=== PATIENT | female | born 1945 | race Caucasian/White ===

== ENCOUNTER 2017-02-17 13:50 | Inpatient (IN) | payer OTHER, MEDICARE ==
[~2017-02-17] VITALS: Ht 160 cm; Wt 55.3 kg
[~2017-02-17 13:50] MED LIST: ACET160E36 GT; ALBU1.25 NEB; AMIN30LI27 GT; ASCO500S2 GT; CHLO473M3 PO; EPOE1VIA12 SQ; GUAI100S11 GT; HALO5TAB GT; MAG30ORA GT; MUPI22OI7 TP; NA P133E RC; Nutritional Supplement/Fiber GT; Olanzapine GT; Ondansetron Hcl/Pf IVP; PANT40VI GT; QUET25TA GT; RIVA10TA PO; VALPROIC ACID GT; Zolpidem Tartrate PO
--- NOTE | 2017-02-17 13:55 | NUR ---
[facility] FROM [facility] FEVER AND PNEUMONIA. A/OX 1, ON VENT/TRACH. NO DISTRESS. FEVER 102.0, HOT TO TOUCH. IV INTACT ON LEFT HAND, 24 G. BP STABLE. SAFETY AND COMFORT MEASURES IN PLACE. AWAITING MD ORDERS.
--- NOTE | 2017-02-17 14:00 | NUR ---
NEW IV STARTED ON RAC, 20 G. BLOOD DRAWN AND SENT TO LAB.
[2017-02-17 14:28] LABS: BASOPHILS % (AUTO) 0.3 % (0.0-2.0); EOSINOPHILS % (AUTO) 0.1 % (0.0-6.0); HEMATOCRIT 41 % (33-45); HEMOGLOBIN 12.7 g/dL (11.5-14.8); LYMPHOCYTES # (AUTO) 0.8 /CMM (0.8-4.8); LYMPHOCYTES % (AUTO) 7.7 % (20.0-44.0); MEAN CORPUSCULAR HEMOGLOBIN 29 PG (26.0-33.0); MEAN CORPUSCULAR HGB CONC 31 g/dl (31.0-36.0); MEAN CORPUSCULAR VOLUME 93 fL (82-100); MONOCYTES # (AUTO) 0.6 /CMM (0.1-1.30); MONOCYTES % (AUTO) 5.1 % (2.0-12.0); NEUTROPHILS # (AUTO) 9.5 /CMM (1.8-8.9); NEUTROPHILS % (AUTO) 86.8 % (43.0-81.0); PLATELET COUNT (AUTO) 126 /CMM (150-450); RDW COEFFICIENT OF VARIATION 15.8 (11.5-15.0); RED BLOOD CELL COUNT(AUTO) 4.42 MIL/uL (4.0-5.2); WHITE BLOOD COUNT (AUTO) 10.9 K/uL (4.3-11.0)
[2017-02-17 14:33] LABS: CALCIUM, SERUM 8.4 mg/dL (8.5-10.1); CARBON DIOXIDE 27 mmol/L (21-32); CHLORIDE 98 mmol/L (98-107); GLUCOSE 167 mg/dL (74-106); POTASSIUM 4.4 mmol/L (3.5-5.1); SODIUM SERUM 130 mmol/L (136-145); UREA NITROGEN, BLOOD 30 mg/dL (7-18)
[2017-02-17 14:39] LABS: ALANINE AMINOTRANSFERASE 14 U/L (12-78); ALBUMIN 2.2 g/dL (3.4-5.0); ALKALINE PHOSPHATASE 119 U/L (46-116); ASPARTATE AMINOTRANSFERASE 28 U/L (15-37); BILIRUBIN,DIRECT 0.1 mg/dL (0.0-0.2); BILIRUBIN,TOTAL 0.3 mg/dL (0.2-1.0); TOTAL PROTEIN, SERUM 7.3 g/dL (6.4-8.2)
[2017-02-17 14:42] LABS: INR 1.13 (0.87-1.13); PROTHROMBIN TIME 11.8 SECS (9.5-12.7); TROPONIN I < 0.017 ng/mL (0.00-0.056)
--- NOTE | 2017-02-17 14:45 | NUR ---
URINE OBTAINED VIA STRAIGHT CATH AND SENT TO LAB PER MD ORDERS.
[2017-02-17 14:46] VITALS: BP 57/33
--- NOTE | 2017-02-17 14:49 | NUR ---
RT NOTE PT PLACED ON VENT PER MD ORDER. SETTINGS ENDORSED FROM TRANSPORT RT. AC 12 550 50% +5. ALARMS SET PER PROTOCOL AND AUDIBLE. VENT PLUGGED IN TO RED OUTLET. AMBU BAG AT BED SIDE. NO DISTRESS NOTED WILL CONTINUE TO MONITOR. Addendum: 02/17/17 at 1450 by AGUILA MICHAELS RT Amended: Links added.
--- NOTE | 2017-02-17 14:57 | NUR ---
PATIENTS BP DROPPING TO 74/45. OKAY TO GIVE 1L BOLUS NS PER DR. GONZALEZ.
[2017-02-17 14:58] LABS: APPEARANCE,URINE Slightly Cloudy (CLEAR); BILIRUBIN,URINE Negative (NEGATIVE); BLOOD, URINE Large Ery/uL (NEGATIVE); COLOR,URINE Yellow (YELLOW); KETONES,URINE Negative (NEGATIVE); LEUKOCYTE ESTERASE ,URINE Small (NEGATIVE); NITRITE, URINE Negative (NEGATIVE); PH,URINE 5.5 (5.0-8.0); PROTEIN,URINE 100 mg/dl (NEGATIVE); UGLUCOSE Negative (NEGATIVE); UROBILINOGEN,URINE 0.2 EU/dL (0.2)
[2017-02-17 15:00] LABS: BACTERIA,URINE Few /HPF (None Seen); SQUAMOUS EPITHELIAL CELL,UR Few /HPF (None Seen); URINE AMORPHOUS URATE Moderate /HPF (None Seen)
[2017-02-17] MEDS ORDERED: IV NS 0.9% 1,000 ML BAG IV ONE ×2 (15:00→17:00)
[2017-02-17] MEDS ORDERED: PIPERACILLIN /TAZOBACTAM 3.375 G in IV D5W 50 ML IV ONE (15:30)
[2017-02-17] MEDS ORDERED: LEVOFLOXACIN 750 MG /D5W 150ML PIGGYBACK IV ONE (15:30)
--- NOTE | 2017-02-17 15:39 | NUR ---
EPIC PAGED, DERRICK BARGE OPERATOR
[2017-02-17] MEDS ORDERED: LEVOFLOXACIN 750 MG /D5W 150ML 150 ML IV ONE (15:44)
--- NOTE | 2017-02-17 15:47 | NUR ---
CALLED NURSING SUP. FOR [facility] BED
[2017-02-17] MEDS ORDERED: MEMA10TA GT (16:05)
[2017-02-17] MEDS ORDERED: OLAN5TAB3 GT (16:05)
[2017-02-17] MEDS ORDERED: BISA10SU61 RC (16:05)
[2017-02-17] MEDS ORDERED: MAGN400O6 GT (16:05)
[2017-02-17] MEDS ORDERED: DOCU-141 GT (16:05)
[2017-02-17] MEDS ORDERED: FOLI1TAB16 PO (16:05)
[2017-02-17] MEDS ORDERED: EPOE1VIA12 SQ (16:05)
[2017-02-17] MEDS ORDERED: CALC-883 GT (16:05)
[2017-02-17] MEDS ORDERED: METO25TA6 GT (16:05)
[2017-02-17] MEDS ORDERED: ALBU2.5V38 IH (16:05)
[2017-02-17] MEDS ORDERED: FLUD0.1T PO (16:05)
[2017-02-17] MEDS ORDERED: VALP250S3 GT (16:05)
--- NOTE | 2017-02-17 16:39 | NUR ---
PATIENT HAVING DIARRHEA, STOOL COLLECTED AND SENT TO LAB PER MD ORDERS.
--- NOTE | 2017-02-17 16:48 | NUR ---
TELE 110
--- NOTE | 2017-02-17 16:56 | NUR ---
REPORT GIVEN TO ESTUARDO ROY FOR SUJATA UPON ADMISSION.
[2017-02-17 17:35] VITALS: BP 121/59
[2017-02-17] MEDS ORDERED: IV NS 0.9% 1,000 ML IV ONE (18:00)
[2017-02-17] MEDS ORDERED: ONDANSETRON HCL/PF 4 MG/2 ML VIAL IVP PRN (18:00)
[2017-02-17] MEDS ORDERED: MAGNESIUM HYDROXIDE 30 ML UDC PO PRN (18:00)
[2017-02-17] MEDS ORDERED: ALBUTEROL FS 2.5 MG/3 ML VIAL.NEB IH PRN (18:00)
[2017-02-17] MEDS ORDERED: BISACODYL SUPP (10 MG) 10 MG/SUPP.RECT SUPP.RECT RC PRN (18:00)
[2017-02-17] MEDS ORDERED: MAG HYDROX/AL HYDROX/SIMETH 30 ML UDC PO PRN (18:00)
[2017-02-17 18:06] VITALS: BP 68/30
[2017-02-17] MEDS ORDERED: FEE PK DOSING 1 MIN EA MC ONE (18:21)
[2017-02-17] MEDS: MEMANTINE HCL 5 MG TABLET GT SCH (18:24)
[2017-02-17 18:25] VITALS: BP 121/59
--- NOTE | 2017-02-17 18:29 | NUR ---
The patient, Aurora Mejia, 71 y/o, female with diagnosis of sepsis admitted under the care of KANWAL GILLETTE MD, was given written information regarding hospital policies, unit procedures and contact persons. Valuables were checked and remain at bedside.
[2017-02-17] MEDS ORDERED: VANCOMYCIN 1 GM in IV D5W 500 ML IV ONE (18:30)
[2017-02-17] MEDS: VALPROIC ACID 250 MG/5 ML UDC GT SCH (19:09)
[2017-02-17] MEDS: ENOXAPARIN SODIUM 40 MG/0.4 ML DISP.SYRIN SQ SCH (19:17)
--- NOTE | 2017-02-17 19:24 | NUR ---
Handoff report to night nurse.
[2017-02-17 20:00] VITALS: BP 145/56
--- NOTE | 2017-02-17 20:30 | NUR ---
RN NOTES RECEIVED PT ASLEEP ON BED WITH TRACH PORTEX 7 CONNECTED TO VENT SETTING AC12 TV 550 FIO2 45% NO PEEP ABLE TO MOUTH WORDS WHEN AWAKE. SUCTIONED WITH YELLOW THICK SECRETION. NOTED PT COUGH MOST OF THE TIME SECRETION GOES TO NOSE WELL. PT IS AOX1 CONFUSED GT CLAMPED. NPO AT THIS TIME. IV SITE ON RAC G 20 AND RIGHT HAND G 24 WITH IVF RUNNING @ 100CC/HR INTACT AND PATENT. WARMTH TO TOUCH AFEBRILE. BED BATH DONE WITH YELLOW LIQUID AND ODOROUS STOOL. PER AM SHIFT C-DIFF IS PENDING. KEPT PT CLEAN AND DRY. CALL LIGHT KEPT WITHIN EASY REACH INSTRUCTED PROVIDED BUT PT IS NOT COMPREHENDED INSTRUCTION. WILL CONTINUE TO MONITOR.
[2017-02-17] MEDS: IV NS 0.9% 1,000 ML IV PRN (22:08)
[2017-02-17] MEDS: PIPERACILLIN /TAZOBACTAM 3.375 G in IV D5W 50 ML IV SCH (22:09)
[2017-02-18] VITALS: BP_SYST 127; BP_SYST 135; BP_DIAS 58; BP_DIAS 74
[2017-02-18 04:00] VITALS: BP 123/88
[2017-02-18] MEDS ORDERED: VANCOMYCIN 1 GM VIAL ONE (06:08)
[2017-02-18] MEDS: PIPERACILLIN /TAZOBACTAM 3.375 G in IV D5W 50 ML IV SCH ×3 (06:13→18:41)
--- NOTE | 2017-02-18 06:54 | NUR ---
RN NOTES PT ASLEEP WELL ON BED COUGH ON AND OFF. AFEBRILE. NO SIGNIFICANT CHANGES NOTED. TRACH AND VENT SETTING TOLERATED WELL. SUCTIONED MORE OFTEN .ALL DUE MEDICINE VIA IV TOLERATED WELL ON RAC G 20 IV SITE REMAINED INTACT AND PATENT. KEPT PT CLEAN AND DRY. FLEXISEAL STILL IN PLACED WITH LIQUID YELLOW STOOL. BED LOCKED AND SECURED WILL ENDORSED CONTINUITY OF CARE TO AM NURSE.
--- NOTE | 2017-02-18 07:15 | NUR ---
RN NOTES VANCOMYCIN 500 MG IV ENDORSED TO AM SHIFT NOT AVAILABLE AT THIS TIME.
--- NOTE | 2017-02-18 07:30 | NUR ---
KAYLEY RN INITIAL NOTES RECEIVED PATIENT IN BED, NO SIGNS OF DISTRESS, ON VENT SETTINGS ORDERED, SATURATING 99% PATIENT IS ABLE TO MOUTH WORDS AND COMMUNICATE, DUE TO DEMENTIA PATIENT IS CONFUSED AND AT TIMES COMBATIVE WHEN CLEANING OR ORAL SUCTIONING, PATIENT SUCTIONED WITH YELLOWISH GREEN SECRETIONS NOTED. ON TELE MONITOR 99-100 SR-ST, IV ON RAC 20G NS @ 100CC/ML, CLEAN AND PATENT ACCESS, BED IN LOW AND LOCKED POSITION CALL LIGHT WITHIN REACH WILL CONTINUE TO MONITOR.
--- NOTE | 2017-02-18 07:46 | NUR ---
RECEIVED PT ON TRACH, ON AC MODE PER MD, AC12,550,45%, ALARMS CHECKED AND AUDIBLE, PLUGGED IN RED OUTLET, AMBUBAG AT BEDSIDE, NO TXS GIVEN/NEEDED, SXD MODERATE AMOUNT OF THICK PALE YELLOW SECRETIONS, PT STABLE ON CURRENT SETTINGS, WILL CONTINUE TO CURRENT PLAN OF CARE Addendum: 02/18/17 at 1639 by NANDINI MESSINA RT Amended: Links added.
[2017-02-18 08:00] VITALS: BP 150/68
[2017-02-18 08:12] LABS: CHOLESTEROL 146 mg/dL (<200); HDL CHOLESTEROL 30 mg/dL (40-60); LDL 93 mg/dL (0-99); TRIGLYCERIDES 96 mg/dL (30-150)
[2017-02-18 08:23] LABS: HEMATOCRIT 39 % (33-45); HEMOGLOBIN 12.1 g/dL (11.5-14.8); LYMPHOCYTES # (AUTO) 0.8 /CMM (0.8-4.8); LYMPHOCYTES % (AUTO) 6.2 % (20.0-44.0); MEAN CORPUSCULAR HEMOGLOBIN 30 PG (26.0-33.0); MEAN CORPUSCULAR HGB CONC 32 g/dl (31.0-36.0); MEAN CORPUSCULAR VOLUME 96 fL (82-100); MONOCYTES # (AUTO) 0.6 /CMM (0.1-1.30); MONOCYTES % (AUTO) 4.8 % (2.0-12.0); NEUTROPHILS # (AUTO) 11.3 /CMM (1.8-8.9); PLATELET COUNT (AUTO) 113 /CMM (150-450); RED BLOOD CELL COUNT(AUTO) 4.01 MIL/uL (4.0-5.2); WHITE BLOOD COUNT (AUTO) 12.7 K/uL (4.3-11.0)
[2017-02-18 08:29] LABS: CALCIUM, SERUM 8.6 mg/dL (8.5-10.1); CARBON DIOXIDE 23 mmol/L (21-32); CHLORIDE 107 mmol/L (98-107); CREATININE 0.9 mg/dL (0.6-1.3); GLUCOSE 81 mg/dL (74-106); MAGNESIUM 1.7 mg/dL (1.8-2.4); PHOSPHORUS 2.4 mg/dL (2.5-4.9); POTASSIUM 4.1 mmol/L (3.5-5.1); SODIUM SERUM 140 mmol/L (136-145); UREA NITROGEN, BLOOD 22 mg/dL (7-18)
[2017-02-18] MEDS: FOLIC ACID 1 MG TABLET PO SCH (08:36)
[2017-02-18] MEDS: VANCOMYCIN 500 MG in IV D5W 100 ML IV SCH ×2 (08:36→18:44)
[2017-02-18] MEDS: VALPROIC ACID 250 MG/5 ML UDC GT SCH ×3 (08:36→16:47)
[2017-02-18] MEDS: FLUDROCORTISONE 0.1 MG TABLET GT SCH (08:36)
[2017-02-18] MEDS: MEMANTINE HCL 5 MG TABLET GT SCH ×2 (08:36→16:47)
[2017-02-18] MEDS: DOCUSATE SODIUM 100 MG CAPSULE PO SCH (08:36)
[2017-02-18] MEDS: ACETAMINOPHEN 325 MG TABLET PO PRN (08:37)
--- NOTE | 2017-02-18 08:40 | NUR ---
KAYLEY RN NOTES PATIENT HAS TEMPERATURE OF 101, COOLING MEASURES DONE AND TYLENOL GIVEN.
[2017-02-18] MEDS: IV NS 0.9% 1,000 ML IV PRN (08:50)
[2017-02-18 10:30] LABS: ABG BASE EXCESS -5.1 mmol/L; ABG OXYGEN SATURATION 97.3 % (92.0-98.5); ABG PCO2 42.9 mmHg (35.0-45.0); ABG PH 7.307 (7.350-7.450); ABG PO2 100.2 mmHg (75.0-100.0); AaDO2 171.9 mmHg; MetHb 0.6 % (0.0-1.5); O2Hb 96.7 % (94.0-97.0); SITE, ABG Left Brachial; VENT MODE, BG 45% O2; VT, ABG 550 mL
[2017-02-18 12:00] VITALS: BP 128/63
[2017-02-18] MEDS: Magnesium 1GM/D5W 100ML PREMIX 100 ML IV SCH ×2 (12:07→13:19)
[2017-02-18 16:00] VITALS: BP 105/46
[2017-02-18] MEDS ORDERED: NEUTRA PHOS 1 POWD.PACKET GT ONE (16:00)
--- NOTE | 2017-02-18 19:00 | NUR ---
PREDATORY HUNTER END NOTES PATIENT RESTING IN BED, SO TACHYCARDIA NOTED 120S, SUCTIONED, ALL NEEDS MET, WILL ENDORSE TO SENIOR RELIABILITY ENGINEER FOR CONTINUITY OF CARE.
--- NOTE | 2017-02-18 19:43 | NUR ---
RECEIVED PT TRACHED, AC12,550,45%, 0 PEEP, ALARMS CHECKED AND AUDIBLE, PLUGGED IN RED OUTLET, AMBUBAG AT BEDSIDE, SXD MODERATE AMOUNT OF THICK PALE YELLOW SECRETIONS, PT STABLE ON CURRENT SETTINGS, WILL CONTINUE MONITORING PER MDS ORDERS. Addendum: 02/18/17 at 1945 by MITCHEL TURNER RT Amended: Links added.
[2017-02-18 20:00] VITALS: BP 92/51
--- NOTE | 2017-02-18 20:00 | NUR ---
RN INITIAL NOTES RECEIVED PT TRACHED, AC12,550,45%, 0 PEEP, ALARMS CHECKED AND AUDIBLE, PLUGGED IN RED OUTLET, AMBUBAG AT BEDSIDE, SXD MODERATE AMOUNT OF THICK PALE YELLOW SECRETIONS, PT STABLE ON CURRENT SETTINGS, WILL CONTINUE TO MONITORING PT
[2017-02-18] MEDS: ENOXAPARIN SODIUM 40 MG/0.4 ML DISP.SYRIN SQ SCH (20:54)
[2017-02-19] VITALS: BP 96/59
[2017-02-19] MEDS: PIPERACILLIN /TAZOBACTAM 3.375 G in IV D5W 50 ML IV SCH ×5 (00:16→23:19)
[2017-02-19] MEDS: ACETAMINOPHEN 325 MG TABLET PO PRN ×2 (00:16→09:03)
[2017-02-19 04:00] VITALS: BP 98/46
[2017-02-19] MEDS: VANCOMYCIN 500 MG in IV D5W 100 ML IV SCH ×2 (05:42→18:04)
--- NOTE | 2017-02-19 06:28 | NUR ---
RN CLOSING NOTES RECEIVED PT TRACH ;PORTEX # 7, AC12,550,45%, 0 PEEP, ALARMS CHECKED AND AUDIBLE, PLUGGED IN RED OUTLET, AMBUBAG AT BEDSIDE, SXD MODERATE AMOUNT OF THICK PALE YELLOW SECRETIONS, PT STABLE ON CURRENT SETTINGS, PT WAS IN DISTRESS OVER NIGHT, DISTRESS RESOLVED. WILL ENDORSE TO AM RN.
[2017-02-19 07:04] LABS: BASOPHILS % (AUTO) 0.2 % (0.0-2.0); HEMATOCRIT 33 % (33-45); HEMOGLOBIN 10.7 g/dL (11.5-14.8); MEAN CORPUSCULAR HEMOGLOBIN 31 PG (26.0-33.0); MEAN CORPUSCULAR HGB CONC 32 g/dl (31.0-36.0); MEAN CORPUSCULAR VOLUME 96 fL (82-100); MONOCYTES # (AUTO) 0.5 /CMM (0.1-1.30); MONOCYTES % (AUTO) 5.6 % (2.0-12.0); NEUTROPHILS # (AUTO) 8.2 /CMM (1.8-8.9); NEUTROPHILS % (AUTO) 84.2 % (43.0-81.0); PLATELET COUNT (AUTO) 110 /CMM (150-450); RDW COEFFICIENT OF VARIATION 16.7 (11.5-15.0); RED BLOOD CELL COUNT(AUTO) 3.47 MIL/uL (4.0-5.2); WHITE BLOOD COUNT (AUTO) 9.8 K/uL (4.3-11.0)
--- NOTE | 2017-02-19 07:08 | NUR ---
RT PT RECEIVED TRACHED WITH A PORTEX 7, PT IS ON THE VENT WITH NOTED SETTINGS. PT IS AWAKE AND RESPONDS TO STIMULI. VENT ALARMS ARE SET AND AUDIBLE WITH BVM BY BEDSIDE. CAREER PLACEMENT SERVICES COUNSELOR CUFF PRESSURE NOTED. VENT IS PLUGGED INTO RED OUTLET. SX MODERATE THICK YELLOW SECRETIONS. NO RESPIRATORY DISTRESS NOTED AT THIS TIME, WILL CONTINUE TO MONITOR. Addendum: 02/19/17 at 1123 by KENIA SANDERS RT Amended: Links added.
[2017-02-19 07:18] LABS: CALCIUM, SERUM 8.6 mg/dL (8.5-10.1); CARBON DIOXIDE 25 mmol/L (21-32); CHLORIDE 110 mmol/L (98-107); GLUCOSE 78 mg/dL (74-106); POTASSIUM 3.7 mmol/L (3.5-5.1); SODIUM SERUM 142 mmol/L (136-145); UREA NITROGEN, BLOOD 16 mg/dL (7-18); VANCOMYCIN,TROUGH 10 ug/ml (12-20)
--- NOTE | 2017-02-19 07:18 | NUR ---
RN INITIAL NOTES: REC'D PT ON BED, NOT IN ANY DISTRESS, A/O X1, ABLE TO MAKE NEEDS KNOWN. ON MECH VENT VIA TRACH, NO SOB. ON TELEMONITOR, SR/ST. HAS R AC G20, SL, PATENT & INTACT W/ NO S/SX OF INFECTION/INFILTRATION NOTED. HAS GTUBE, CLAMPED AT THIS TIME FOR TUBE FEEDING. PROVIDED COMFORT & SAFETY MEASURES. BED KEPT LOW & IN LOCKED POS. CALL LIGHT PLACED W/IN REACH. WILL CONTINUE TO MONITOR AND ATTEND PT NEEDS.
[2017-02-19 08:00] VITALS: BP 129/84
[2017-02-19] MEDS: OLANZAPINE 5 MG TABLET GT SCH (08:41)
[2017-02-19] MEDS: MEMANTINE HCL 5 MG TABLET GT SCH ×2 (08:41→17:07)
[2017-02-19] MEDS: FOLIC ACID 1 MG TABLET PO SCH (08:41)
[2017-02-19] MEDS: VALPROIC ACID 250 MG/5 ML UDC GT SCH ×3 (08:41→17:07)
[2017-02-19] MEDS: DOCUSATE SODIUM 100 MG CAPSULE PO SCH (08:41)
[2017-02-19] MEDS: Z GUARD REMEDY 2 OZ OINT TP PRN (08:42)
[2017-02-19 12:00] VITALS: BP 112/84
--- NOTE | 2017-02-19 12:00 | NUR ---
RN NOTES: DR. GILLETTE MADE AWARE THAT PREVIOUS DIET OF THE PT AT [facility] WAS PUREED W/ NTL. AGREED TO ORDER SWALLOW EVALUATION. PER ST, SHE WILL SEE PT TOMORROW. NEED TO BE EVALUATED FIRST IF PT CAN TOLERATED DEFLATING OF TRACH CUFF. DR. GILLETTE INFORMED THAT PT STILL ON AC MODE AND HAS A LOT OF SECRETIONS. AWAITING FOR RESPONSE.
[2017-02-19 16:00] VITALS: BP 132/64
--- NOTE | 2017-02-19 18:43 | NUR ---
RN CLOSING NOTES: NO ACUTE CHANGES NOTED W/IN SHIFT. PT TOLERATED MECH VENT SETTINGS VIA TRACH, NO SOB. ON TELEMONITOR, STILL SR/ST. DARIANA MIDLINE SL, KEPT PATENT & INTACT W/ NO S/SX OF INFECTION/INFILTRATION NOTED. GTUBE, CLAMPED AT THIS TIME FOR TUBE FEEDING, KEPT PATENT & INTACT FOR MEDICATIONS. KEPT WELL RESTED. NEEDS ATTENDED. BED KEPT LOW & IN LOCKED POS. CALL LIGHT PLACED W/IN REACH. WILL ENDORSE TO PM RN FOR SUJATA.
--- NOTE | 2017-02-19 19:50 | NUR ---
PT RCVD ON MECH VENT WITH NOTED SETTINGS. VENT PLUGGED INTO RED OUTLET,VENT ALARM WORKING AND AUDIBLE, HYDRO OPERATOR CUFF CHECKED,SUCTIONED MODERATE AMOUNT OF PALE YELLOW THICK SECRETIONS. NO RESP DISTRESS NOTED AT THIS TIME. AMBU BAG AT BEDSIDE, WILL CONTINUE TO MONITOR THE PT.
[2017-02-19 20:00] VITALS: BP 101/74
--- NOTE | 2017-02-19 20:00 | NUR ---
RN INITIAL NOTES: RECEIVED PT RESTING IN BED WITH NO SIGNS OF DISTRESS. PT ON MECH VENT SETTINGS VIA TRACH, NO SOB. ON TELEMONITOR, PT SR/ST. DARIANA MIDLINE SL PATENT & INTACT W/ NO S/SX OF INFECTION/INFILTRATION NOTED. GTUBE, CLAMPED AT THIS TIME. BED IN THE LOW & IN LOCKED POS. CALL LIGHT PLACED W/IN REACH. WILL CONT TO MONITOR .
[2017-02-19] MEDS: ENOXAPARIN SODIUM 40 MG/0.4 ML DISP.SYRIN SQ SCH (21:22)
[2017-02-20] VITALS: BP_SYST 123; BP_SYST 140; BP_DIAS 60; BP_DIAS 70
[2017-02-20 04:00] VITALS: BP 146/61
[2017-02-20] MEDS: ACETAMINOPHEN 325 MG TABLET PO PRN (05:07)
[2017-02-20] MEDS: PIPERACILLIN /TAZOBACTAM 3.375 G in IV D5W 50 ML IV SCH ×4 (05:09→23:44)
--- NOTE | 2017-02-20 06:27 | NUR ---
RN INITIAL NOTES: NO CHANGES DURING SHIFT, PT RESTING IN BED WITH NO SIGNS OF DISTRESS. PT ON MECH VENT SETTINGS VIA TRACH, NO SOB. ON TELEMONITOR, PT SR/ST. DARIANA MIDLINE SL PATENT & INTACT W/ NO S/SX OF INFECTION/INFILTRATION NOTED. GTUBE, CLAMPED AT THIS TIME. BED IN THE LOW & IN LOCKED POS. CALL LIGHT PLACED W/IN REACH. WILL ENDORSE TO AM RN .
--- NOTE | 2017-02-20 07:12 | NUR ---
RN INITIAL NOTES: REC'D PT ON BED, NOT IN ANY DISTRESS, A/O X1-2, ABLE TO MAKE NEEDS KNOWN. ON MECH VENT VIA TRACH, NO SOB. ON TELEMONITOR, SR/ST. HAS DARIANA MIDLINE, SL, FLUSHED, PATENT & INTACT W/ NO S/SX OF INFECTION/INFILTRATION NOTED. HAS GTUBE, CLAMPED AT THIS TIME. PROVIDED COMFORT & SAFETY MEASURES. BED KEPT LOW & IN LOCKED POS. CALL LIGHT PLACED W/IN REACH. WILL CONTINUE TO MONITOR AND ATTEND PT NEEDS.
[2017-02-20 08:00] VITALS: BP 90/45
--- NOTE | 2017-02-20 08:22 | NUR ---
RT PT RECEIVED TRACHED WITH A PORTEX 7, PT IS ON THE VENT WITH NOTED SETTINGS. PT IS AWAKE AND ALERT. VENT ALARMS ARE SET AND AUDIBLE WITH BVM BY BEDSIDE. METAL ROOFING MECHANIC CUFF PRESSURE NOTED. VENT IS PLUGGED INTO RED OUTLET. SX SMALL THICK YELLOW SECRETIONS. INNER CANNULA CHANGED. NO RESPIRATORY DISTRESS NOTED AT THIS TIME, WILL CONTINUE TO MONITOR. Addendum: 02/20/17 at 0822 by KENIA SANDERS RT Amended: Links added.
[2017-02-20] MEDS: MEMANTINE HCL 5 MG TABLET GT SCH ×2 (08:25→17:03)
[2017-02-20] MEDS: FLUDROCORTISONE 0.1 MG TABLET GT SCH (08:25)
[2017-02-20] MEDS: VALPROIC ACID 250 MG/5 ML UDC GT SCH ×3 (08:25→17:03)
[2017-02-20] MEDS: OLANZAPINE 5 MG TABLET GT SCH (08:26)
[2017-02-20] MEDS: FOLIC ACID 1 MG TABLET PO SCH (08:26)
[2017-02-20] MEDS: DOCUSATE SODIUM 100 MG CAPSULE PO SCH (08:26)
[2017-02-20] MEDS: Z GUARD REMEDY 2 OZ OINT TP PRN (08:27)
[2017-02-20 12:00] VITALS: BP 94/47
[2017-02-20] MEDS: FIBERSOURCE HN 1,000 ML BOTTLE GT PRN (13:11)
[2017-02-20 16:00] VITALS: BP 110/49
--- NOTE | 2017-02-20 18:32 | NUR ---
RN CLOSING NOTES: NO ACUTE CHANGES NOTED W/IN SHIFT. PT TOLERATED MECH VENT SETTINGS VIA TRACH, NO SOB. ON TELEMONITOR, STILL SR/ST. DARIANA MIDLINE SL, KEPT PATENT & INTACT W/ NO S/SX OF INFECTION/INFILTRATION NOTED. GTUBE KEPT PATENT & INTACT, STARTED ON FIBERSOURCE X 55 CC/HR (TITRATED UP, GOAL REACHED) INFUSING WELL, NO RESIDUAL NOTED W/IN SHIFT. KEPT WELL RESTED. NEEDS ATTENDED. BED KEPT LOW & IN LOCKED POS. CALL LIGHT PLACED W/IN REACH. WILL ENDORSE TO PM RN FOR SUJATA.
[2017-02-20 20:00] VITALS: BP 89/46
--- NOTE | 2017-02-20 20:00 | NUR ---
RN INITIAL NOTES: RECEIVED PT RESTING IN BED. PT ON [facility] VENT SETTINGS VIA TRACH, NO SOB. ON TELEMONITOR. DARIANA MIDLINE SL, PATENT & INTACT W/ NO S/SX OF INFECTION OR INFILTRATION NOTED. GTUBE PATENT & INTACT,WITH FIBERSOURCE X 55 CC/HR INFUSING,WILL CHECK RESIDUAL. BED IN LOW & LOCKED POS. CALL LIGHT PLACED W/IN REACH. WILL CONTINUE TO MONITOR.
--- NOTE | 2017-02-20 20:08 | NUR ---
PT RCVD ON MECH VENT WITH NOTED SETTINGS. VENT PLUGGED INTO RED OUTLET,VENT ALARM WORKING AND AUDIBLE, HEAD OF MUSIC CUFF CHECKED,SUCTIONED MODERATE AMOUNT OF PALE YELLOW THICK SECRETIONS, NO RESP DISTRESS NOTED AT THIS TIME. AMBU BAG AT BEDSIDE, WILL CONTINUE TO MONITOR THE PT.
[2017-02-20] MEDS: ENOXAPARIN SODIUM 40 MG/0.4 ML DISP.SYRIN SQ SCH (21:58)
[2017-02-21] VITALS: BP 123/60
[2017-02-21 04:00] VITALS: BP 121/65
[2017-02-21] MEDS: PIPERACILLIN /TAZOBACTAM 3.375 G in IV D5W 50 ML IV SCH ×3 (05:17→18:41)
[2017-02-21] MEDS: FIBERSOURCE HN 1,000 ML BOTTLE GT PRN (05:17)
--- NOTE | 2017-02-21 07:05 | NUR ---
RN CLOSING NOTES: PT RESTING IN BED NO CHANGE IN CONDITION DURING SHIFT. [facility] VIA TRACH, NO SOB. ON TELEMONITOR. DARIANA MIDLINE SL, PATENT & INTACT W/ NO S/SX OF INFECTION OR INFILTRATION NOTED. GTUBE PATENT & INTACT,WITH FIBERSOURCE X 55 CC/HR INFUSING,0 RESIDUAL. BED IN LOW & LOCKED POS. CALL LIGHT PLACED W/IN REACH. WILL ENDORSE TO AM RN.
--- NOTE | 2017-02-21 07:12 | NUR ---
RT PT RECEIVED TRACHED WITH A PORTEX 7, PT IS ON THE VENT WITH NOTED SETTINGS. PT IS AWAKE AND TRACKS WITH EYES. VENT ALARMS ARE SET AND AUDIBLE WITH BVM BY BEDSIDE. MEDICAL TERRITORY MANAGER CUFF PRESSURE NOTED. VENT IS PLUGGED INTO RED OUTLET. SX MINIMAL SECRETIONS. NO RESPIRATORY DISTRESS NOTED AT THIS TIME, WILL CONTINUE TO MONITOR. Addendum: 02/21/17 at 1712 by KENIA SANDERS RT Amended: Links added.
[2017-02-21 08:00] VITALS: BP_SYST 133; BP_SYST 87; BP_DIAS 40; BP_DIAS 42
[2017-02-21 08:24] VITALS: BP 87/42
--- NOTE | 2017-02-21 08:25 | NUR ---
RN OPENING NOTES PATIENT RESTING COMFORTABLY IN BED. AOX1/2. ON VENT SUPPORT WITH VENT SETTING PORTEX#7, AC 12, TV 550, FIO2 45% PEEP 0. GTUBE IN PLACE. PATENT AND INTACT WITH FIBERSOURCE RUNNING AT 55ML/HR. WILL CHECK RESIDUALS PRIOR TO MED ADMINISTRATION. TOLERATING VENT SUPPORT. DARIANA MIDLINE PATENT AND INTACT. RESPIRATIONS EVEN AND UNLABORED. DENIES SOB. AND CP. NO PAIN AT THIS TIME. NO ACUTE DISTRESS. BED LOCKED IN THE LOWEST POSITION WITH SIDERAILS UP X2. CALL LIGHT WITHIN REACH. WILL CONTINUE TO MONITOR, ASSESS AND EDUCATE PATIENT THROUGHOUT SHIFT.
[2017-02-21 09:23] LABS: BASOPHILS % (AUTO) 0.1 % (0.0-2.0); EOSINOPHILS % (AUTO) 0.1 % (0.0-6.0); HEMATOCRIT 31 % (33-45); HEMOGLOBIN 9.9 g/dL (11.5-14.8); LYMPHOCYTES % (AUTO) 17.6 % (20.0-44.0); MEAN CORPUSCULAR HEMOGLOBIN 31 PG (26.0-33.0); MEAN CORPUSCULAR HGB CONC 32 g/dl (31.0-36.0); MEAN CORPUSCULAR VOLUME 95 fL (82-100); MONOCYTES # (AUTO) 0.4 /CMM (0.1-1.30); MONOCYTES % (AUTO) 6.6 % (2.0-12.0); NEUTROPHILS # (AUTO) 4.4 /CMM (1.8-8.9); NEUTROPHILS % (AUTO) 75.6 % (43.0-81.0); PLATELET COUNT (AUTO) 91 /CMM (150-450); RDW COEFFICIENT OF VARIATION 15.9 (11.5-15.0); RED BLOOD CELL COUNT(AUTO) 3.23 MIL/uL (4.0-5.2); WHITE BLOOD COUNT (AUTO) 5.8 K/uL (4.3-11.0)
[2017-02-21 09:37] LABS: CALCIUM, SERUM 8.2 mg/dL (8.5-10.1); CARBON DIOXIDE 26 mmol/L (21-32); CHLORIDE 111 mmol/L (98-107); CREATININE 1.1 mg/dL (0.6-1.3); GLUCOSE 130 mg/dL (74-106); MAGNESIUM 1.8 mg/dL (1.8-2.4); PHOSPHORUS 2.3 mg/dL (2.5-4.9); SODIUM SERUM 142 mmol/L (136-145); UREA NITROGEN, BLOOD 22 mg/dL (7-18)
--- NOTE | 2017-02-21 10:00 | NUR ---
RN NOTES PRIOR TO MEDICATION ADMINISTRATION 4O MLS OF RESIDUALS NOTED. WILL CONTINUE TO MONITOR.
[2017-02-21] MEDS: FOLIC ACID 1 MG TABLET PO SCH (10:18)
[2017-02-21] MEDS: DOCUSATE SODIUM 100 MG CAPSULE PO SCH (10:18)
[2017-02-21] MEDS: OLANZAPINE 5 MG TABLET GT SCH (10:18)
[2017-02-21] MEDS: MEMANTINE HCL 5 MG TABLET GT SCH ×2 (10:18→17:55)
[2017-02-21] MEDS: VALPROIC ACID 250 MG/5 ML UDC GT SCH ×3 (10:20→17:55)
[2017-02-21 11:06] LABS: BAND % (MANUAL) 20 % (0.0-5.0); LYMPHOCYTES % (MANUAL) 9 % (16-48); MONOCYTES % (MANUAL) 4 % (0-11.0); NEUTROPHILS % (MANUAL) 67 (42-76)
[2017-02-21 12:00] VITALS: BP 103/54
[2017-02-21] MEDS ORDERED: K PHOS NEUTRAL 250 MG TABLET PO ONE (14:00)
[2017-02-21 16:00] VITALS: BP_SYST 132; BP_SYST 137; BP_DIAS 44
--- NOTE | 2017-02-21 19:00 | NUR ---
RN NOTES PATIENT K+ 3.0. ORDER FOR K DUR 40 MEQ ONCE. WILL CARRY OUT PER HOLE FILLER MURIEL.
[2017-02-21] MEDS ORDERED: POTASSIUM CHLORIDE 20 MEQ TAB.PRT.SR PO ONE ×2 (19:30→19:48)
--- NOTE | 2017-02-21 19:30 | NUR ---
Received patient in the bed.No unusual signs or symptoms observed or reported,no signs of discomfort or distress.
--- NOTE | 2017-02-21 20:12 | NUR ---
RN CLOSING NOTES PATIENT RESTING COMFORTABLY IN BED. ALL NEEDS MET. ALL MEDS GIVEN APPROPRIATE. NO ACUTE DISTRESS. TELE MONITOR READING SR 94 WITH PAC'S. RESPIRATIONS EVEN AND UNLABORED. SATURATING ADEQUATELY ON VENT SUPPORT. BED LOCKED IN THE LOWEST POSITION WITH SIDE RAILS UP X2. CALL LIGHT WIHTIN REACH WILL ENDORSE TO NIGHT RN FOR SUJATA.
[2017-02-21] MEDS: ENOXAPARIN SODIUM 40 MG/0.4 ML DISP.SYRIN SQ SCH (21:35)
--- NOTE | 2017-02-21 23:00 | NUR ---
Resting quietly,no problems
[2017-02-22] VITALS (7 sets, daily range): BP systolic 87–136; BP diastolic 43–80
[2017-02-22] MEDS: PIPERACILLIN /TAZOBACTAM 3.375 G in IV D5W 50 ML IV SCH ×5 (00:08→23:47)
--- NOTE | 2017-02-22 01:10 | NUR ---
Retook patient VS,100.7
[2017-02-22] MEDS: ACETAMINOPHEN 325 MG TABLET PO PRN (01:23)
--- NOTE | 2017-02-22 03:00 | NUR ---
no unusual signs or symptoms observed or reported,resting quietly
--- NOTE | 2017-02-22 05:52 | NUR ---
RT PT RECEIVED ON [facility] VENT WITH NOTED SETTING. VENT PLUGGED IN TO RED OUTLET. ALARMS SET AND AUDIBLE. AMBU BAG AT [facility]. NO SOB OR RESP DISTRESS NOTED ON SHIFT. SX MOD AMOUNT OF THICK YELLOW SECRETIONS. Addendum: 02/22/17 at 0554 by EUGENIO CARRILLO RT Amended: Links added.
[2017-02-22 06:09] LABS: BASOPHILS % (AUTO) 0.1 % (0.0-2.0); HEMATOCRIT 32 % (33-45); HEMOGLOBIN 10.1 g/dL (11.5-14.8); LYMPHOCYTES # (AUTO) 1.4 /CMM (0.8-4.8); LYMPHOCYTES % (AUTO) 17.9 % (20.0-44.0); MEAN CORPUSCULAR HEMOGLOBIN 30 PG (26.0-33.0); MEAN CORPUSCULAR HGB CONC 32 g/dl (31.0-36.0); MEAN CORPUSCULAR VOLUME 95 fL (82-100); MONOCYTES # (AUTO) 0.5 /CMM (0.1-1.30); MONOCYTES % (AUTO) 6.4 % (2.0-12.0); NEUTROPHILS # (AUTO) 6.1 /CMM (1.8-8.9); NEUTROPHILS % (AUTO) 75.6 % (43.0-81.0); PLATELET COUNT (AUTO) 79 /CMM (150-450); RDW COEFFICIENT OF VARIATION 16.1 (11.5-15.0); RED BLOOD CELL COUNT(AUTO) 3.35 MIL/uL (4.0-5.2)
[2017-02-22 06:18] LABS: CALCIUM, SERUM 8.7 mg/dL (8.5-10.1); CREATININE 1.1 mg/dL (0.6-1.3); GLUCOSE 125 mg/dL (74-106); MAGNESIUM 1.9 mg/dL (1.8-2.4); PHOSPHORUS 1.6 mg/dL (2.5-4.9); UREA NITROGEN, BLOOD 27 mg/dL (7-18)
[2017-02-22 06:22] LABS: CARBON DIOXIDE 28 mmol/L (21-32); CHLORIDE 112 mmol/L (98-107); POTASSIUM 3.4 mmol/L (3.5-5.1); SODIUM SERUM 145 mmol/L (136-145)
--- NOTE | 2017-02-22 07:01 | NUR ---
resting quietly,no problems
--- NOTE | 2017-02-22 07:58 | NUR ---
RN OPENING NOTES RN RECEIVED PATIENT IN BED RESTING COMFORTABLY . PT IS A/O X1/2. ON VENT VENT SETTING ARE PORTEX#7, AC 12, TV 550, FIO2 45% PATIENT TOLERATING VENT SETTINGS WELL. PEEP 0. G-TUBE IN PLACE, PATENT AND INTACT WITH FIBERSOURCE RUNNING AT 55ML/HR. NO RESIDUALS NOTED AT THIS TIME . DARIANA MIDLINE PATENT AND INTACT. RESPIRATIONS EVEN AND UNLABORED. NO DISTRESS NOTED AT THIS TIME . BED LOCKED IN THE LOWEST POSITION WITH SIDE RAILS UP X3. CALL LIGHT WITHIN REACH. RN WILL CONTINUE TO MONITOR THROUGHOUT DAY.
[2017-02-22] MEDS: FOLIC ACID 1 MG TABLET PO SCH (10:21)
[2017-02-22] MEDS: VALPROIC ACID 250 MG/5 ML UDC GT SCH ×3 (10:21→18:11)
[2017-02-22] MEDS: MEMANTINE HCL 5 MG TABLET GT SCH ×2 (10:21→18:12)
[2017-02-22] MEDS: DOCUSATE SODIUM 100 MG CAPSULE PO SCH (10:21)
[2017-02-22] MEDS: OLANZAPINE 5 MG TABLET GT SCH (10:21)
--- NOTE | 2017-02-22 11:00 | NUR ---
RECEIVED PATIENT TRACHED ON MECHANICAL VENT. ALARMS VERIFIED AND AUDIBLE. SUCTION AND LAVAGED SMALL THICK WESLEY SECRETIONS. VENT PLUGGED INTO RED OUTLET. AMBU BAG AT [facility].
[2017-02-22] MEDS ORDERED: POTASSIUM CHLORIDE 20 MEQ POWDER PACKET NG SCH (13:00)
[2017-02-22] MEDS ORDERED: NEUTRA PHOS 1 POWD.PACKET NG ONE (13:30)
--- NOTE | 2017-02-22 19:27 | NUR ---
RN CLOSING NOTE PATIENT STABLE THROUGHOUT THE DAY VITAL SIGNS ASSESSED AND WNL , PATIENT TURNED AND REPOSITIONED Q 2HRS PER PROTOCOL PATIENT ALERT NOT ORIENTED PATIENT NEEDS ATTENDED WILL ENDORSE CARE TO PM RN
--- NOTE | 2017-02-22 19:30 | NUR ---
Received patient in the bed.No unusual signs or symptoms observed or reported,no signs of discomfort or distress.No problems.
--- NOTE | 2017-02-22 19:30 | NUR ---
Received patient in the bed.No unusual signs or eymptoms observed or reported,no signs of discomfort or distress,no [id number].
[2017-02-22] MEDS: ENOXAPARIN SODIUM 40 MG/0.4 ML DISP.SYRIN SQ SCH (20:47)
[2017-02-22] MEDS ORDERED: POTASSIUM CHLORIDE 20 MEQ POWDER PACKET ONE (22:35)
--- NOTE | 2017-02-22 23:00 | NUR ---
No unusual signs or symptoms observed or reported,no signs of discomfort or distress,resting quietly.
--- NOTE | 2017-02-22 23:00 | NUR ---
suction as needed,no problems
[2017-02-23] VITALS: BP 97/51
--- NOTE | 2017-02-23 03:00 | NUR ---
resting quietly,no problems
[2017-02-23 04:00] VITALS: BP 105/45
--- NOTE | 2017-02-23 05:20 | NUR ---
PT STABLE ON DR ORDERED VENT SETTINGS. TRINY WELL, NO S/S OF SOB NOTED. ALARMS SET & AUDIBLE THROUGHOUT ICU UNIT. MECHANICAL VENTILATOR PLUGGED IN TO RED OUTLET. DORCAS AT H.O.B. BILATERAL CHEST RISE OBSERVED. WILL CONTINUE TO MONITOR Addendum: 02/23/17 at 0520 by LAKESHIA MARTINEZ RT Amended: Links added.
[2017-02-23] MEDS: PIPERACILLIN /TAZOBACTAM 3.375 G in IV D5W 50 ML IV SCH ×3 (05:52→16:45)
--- NOTE | 2017-02-23 06:49 | NUR ---
no problems,no unusual signs or symptoms
[2017-02-23 06:53] LABS: BASOPHILS % (AUTO) 0.1 % (0.0-2.0); EOSINOPHILS % (AUTO) 0.4 % (0.0-6.0); HEMATOCRIT 34 % (33-45); HEMOGLOBIN 10.6 g/dL (11.5-14.8); LYMPHOCYTES # (AUTO) 1.6 /CMM (0.8-4.8); LYMPHOCYTES % (AUTO) 30.6 % (20.0-44.0); MEAN CORPUSCULAR HEMOGLOBIN 30 PG (26.0-33.0); MEAN CORPUSCULAR HGB CONC 31 g/dl (31.0-36.0); MEAN CORPUSCULAR VOLUME 96 fL (82-100); MONOCYTES # (AUTO) 0.3 /CMM (0.1-1.30); NEUTROPHILS # (AUTO) 3.4 /CMM (1.8-8.9); NEUTROPHILS % (AUTO) 62.9 % (43.0-81.0); PLATELET COUNT (AUTO) 64 /CMM (150-450); RDW COEFFICIENT OF VARIATION 16.3 (11.5-15.0); RED BLOOD CELL COUNT(AUTO) 3.56 MIL/uL (4.0-5.2); WHITE BLOOD COUNT (AUTO) 5.3 K/uL (4.3-11.0)
--- NOTE | 2017-02-23 07:10 | NUR ---
RN INITIAL NOTE PATIENT RECEIVED IN BED, RESTING. PATIENT IS NON-VERBAL. HAS TRACH: PORTEX #7. TOLERATING VENT SETTINGS WELL. NO S/S OF PAIN OR DISCOMFORT. NO S/S OF RESPIRATORY DISTRESS OR SOB. SKIN IS WARM AND DRY TO TOUCH. SINUS RHYTHM ON TELE MONITOR. IV SITE FLUSHED, PATENT. GTUBE FLUSHED, PLACEMENT VERIFIED. SAFETY PRECAUTIONS IMPLEMENTED, BED IN LOCKED, LOW POSITION WITH TWO SIDE RAILS UP. CALL LIGHT AND BELONGINGS WITHIN EASY REACH. WILL CONTINUE TO MONITOR.
[2017-02-23 07:11] LABS: CALCIUM, SERUM 9.3 mg/dL (8.5-10.1); CARBON DIOXIDE 29 mmol/L (21-32); CHLORIDE 114 mmol/L (98-107); GLUCOSE 96 mg/dL (74-106); MAGNESIUM 2.3 mg/dL (1.8-2.4); PHOSPHORUS 1.4 mg/dL (2.5-4.9); POTASSIUM 4.9 mmol/L (3.5-5.1); SODIUM SERUM 146 mmol/L (136-145); UREA NITROGEN, BLOOD 28 mg/dL (7-18)
--- NOTE | 2017-02-23 07:39 | NUR ---
PT. RECEIVED ON VENT SUPPORT VIA TRACH WITH PARAMETERS SET ORDERED. VENT ALARMS ON AND FUNCTIONING. B/S BILATERAL COURSE ERICK QUINTANILLA MOD. AMNT PALE YELLOW SEMI THICK SECRETIONS. VENTILATOR PLUGGED INTO RED OUTLET, DORCAS @ HOB. Addendum: 02/23/17 at 1721 by ALEXIA BRYANT RT Amended: Links added.
[2017-02-23 08:00] VITALS: BP 91/47
[2017-02-23] MEDS: OLANZAPINE 5 MG TABLET GT SCH (08:44)
[2017-02-23] MEDS: MEMANTINE HCL 5 MG TABLET GT SCH ×2 (08:44→16:10)
[2017-02-23] MEDS: FOLIC ACID 1 MG TABLET PO SCH (08:44)
[2017-02-23] MEDS: VALPROIC ACID 250 MG/5 ML UDC GT SCH ×3 (08:44→16:10)
[2017-02-23] MEDS: DOCUSATE SODIUM 100 MG CAPSULE PO SCH (08:44)
[2017-02-23] MEDS: FLUDROCORTISONE 0.1 MG TABLET GT SCH (08:49)
[2017-02-23 12:00] VITALS: BP 118/42
[2017-02-23] MEDS ORDERED: NEUTRA PHOS 1 POWD.PACKET NG ONE (14:30)
[2017-02-23 16:00] VITALS: BP 111/55
[2017-02-23] MEDS: FIBERSOURCE HN 1,000 ML BOTTLE GT PRN (16:45)
--- NOTE | 2017-02-23 17:21 | NUR ---
NO VENT CHANGES MADE. Addendum: 02/23/17 at 1722 by ALEXIA BRYANT RT Amended: Links added.
[2017-02-23 20:00] VITALS: BP 108/68
[2017-02-24] VITALS (8 sets, daily range): BP systolic 84–140; BP diastolic 44–71
[2017-02-24] MEDS: PIPERACILLIN /TAZOBACTAM 3.375 G in IV D5W 50 ML IV SCH ×4 (00:22→17:44)
[2017-02-24] MEDS: ACETAMINOPHEN 325 MG TABLET PO PRN (02:16)
[2017-02-24] MEDS: FIBERSOURCE HN 1,000 ML BOTTLE GT PRN (05:19)
[2017-02-24 07:28] LABS: CALCIUM, SERUM 9.1 mg/dL (8.5-10.1); CARBON DIOXIDE 29 mmol/L (21-32); CHLORIDE 116 mmol/L (98-107); GLUCOSE 103 mg/dL (74-106); MAGNESIUM 2.2 mg/dL (1.8-2.4); PHOSPHORUS 1.1 mg/dL (2.5-4.9); POTASSIUM 4.9 mmol/L (3.5-5.1); SODIUM SERUM 149 mmol/L (136-145); UREA NITROGEN, BLOOD 31 mg/dL (7-18)
[2017-02-24 08:10] LABS: BASOPHILS % (AUTO) 0.1 % (0.0-2.0); EOSINOPHILS % (AUTO) 0.6 % (0.0-6.0); HEMATOCRIT 30 % (33-45); HEMOGLOBIN 9.4 g/dL (11.5-14.8); LYMPHOCYTES # (AUTO) 2.1 /CMM (0.8-4.8); LYMPHOCYTES % (AUTO) 26.9 % (20.0-44.0); MEAN CORPUSCULAR HEMOGLOBIN 31 PG (26.0-33.0); MEAN CORPUSCULAR HGB CONC 32 g/dl (31.0-36.0); MEAN CORPUSCULAR VOLUME 95 fL (82-100); MONOCYTES # (AUTO) 0.6 /CMM (0.1-1.30); MONOCYTES % (AUTO) 7.3 % (2.0-12.0); NEUTROPHILS # (AUTO) 4.9 /CMM (1.8-8.9); NEUTROPHILS % (AUTO) 65.1 % (43.0-81.0); PLATELET COUNT (AUTO) 52 /CMM (150-450); RDW COEFFICIENT OF VARIATION 15.5 (11.5-15.0); WHITE BLOOD COUNT (AUTO) 7.6 K/uL (4.3-11.0)
--- NOTE | 2017-02-24 08:10 | NUR ---
PT RECEIVED ON [facility] VENT WITH NOTED SETTING PER MD. VENT ALARMS CHECKED AND AUDIBLE, CERTIFIED WELLNESS PROGRAM COORDINATOR DONE. VENT PLUGGED INTO RED OUTLET. AMBUBAG AT BEDSIDE. NO SOB OR RESP DISTRESS NOTED. PT SX'ED AND LAVAGED PRN. TRACH TUBE SECURED AND PATENT. BREATH SOUNDS EQUAL DIMINISHED. PLAN IS TO CONTINUE CURRENT CARE UNDER MD ORDERS AND MONITOR PT FOR CHANGES Addendum: 02/24/17 at 0810 by MARGARET LEVINE RT Amended: Links added.
[2017-02-24 10:34] LABS: LYMPHOCYTES % (MANUAL) 28 % (16-48); MONOCYTES % (MANUAL) 3 % (0-11.0); NEUTROPHILS % (MANUAL) 69 (42-76)
[2017-02-24] MEDS: OLANZAPINE 5 MG TABLET GT SCH (12:02)
[2017-02-24] MEDS: DOCUSATE SODIUM 100 MG CAPSULE PO SCH (12:02)
[2017-02-24] MEDS: VALPROIC ACID 250 MG/5 ML UDC GT SCH ×3 (12:02→17:44)
[2017-02-24] MEDS: FOLIC ACID 1 MG TABLET PO SCH (12:03)
[2017-02-24] MEDS: MEMANTINE HCL 5 MG TABLET GT SCH ×2 (12:03→17:43)
[2017-02-24] MEDS: FLUDROCORTISONE 0.1 MG TABLET GT SCH (16:02)
[2017-02-24] MEDS ORDERED: IV NS 0.9% 500 ML IV ONE ×2 (16:30→21:30)
--- NOTE | 2017-02-24 20:50 | NUR ---
PUNCHBOARD STUFFER NOTES, PATIENT SUPPOSE TO BE DISCHARGE AT THIS TIME, AMBULANCE STAFF HERE AND UPON CHECKING VS, NOTED WITH BLOOD PRESSURE 77/48, RETAKE AGAIN AND BP 95/48, AFTER RECHECK THE BP CONTINUE 75/50. THEY DECIDED NOT TO TAKE THE PATIENT TO NURSING FACILITY. MD PAGED AND AWAITING FOR NEW ORDERS, WILL CONTINUE TO MONITOR CLOSELY.
--- NOTE | 2017-02-24 21:30 | NUR ---
RN NOTES, RECEIVED CALL FROM GAS OPERATIONS SUPERINTENDENT MD, WITH NEW ORDER TO ADMINISTER 500ML 0.9% NS BOLUS AT THIS TIME, ORDERED NOTED AND CARRIED OUT, WILL CONTINUE TO MONITOR CLOSELY.
--- NOTE | 2017-02-24 23:18 | NUR ---
RT NOTE: TRACH PT RECEIVED ON MECH VENT WITH NOTED SETTING. TRACH SECURED. SERVICE UNIT OPERATOR OIL WELL DONE. VENT PLUGGED INTO RED OUTLET. ALARMS SET AND AUDIBLE. AMBU BAG AT [facility]. NO SOB OR RESP DISTRESS NOTED. PRN SX GIVEN NEEDED. WILL CONT TO MONITOR PT.
[2017-02-25] VITALS (8 sets, daily range): BP systolic 90–110; BP diastolic 38–74
[2017-02-25] MEDS: PIPERACILLIN /TAZOBACTAM 3.375 G in IV D5W 50 ML IV SCH ×4 (05:28→12:57)
--- NOTE | 2017-02-25 05:30 | NUR ---
RN NOTED, PATIENT IN BED, ON VENT SETTINGS, BREATHING EVEN AND UNLABORED, NO S/S OF ACUTE DISTRESS OR DISCOMFORT, BP 99/52 AT THIS TIME, KEPT DRY AND CLEAN, BED LOCKED AND IN LOWEST POSITION, CALL LIGHT W/I REACH, WILL CONTINUE TO MONITOR CLOSELY.
[2017-02-25] MEDS: FOLIC ACID 1 MG TABLET PO SCH (10:19)
[2017-02-25] MEDS: OLANZAPINE 5 MG TABLET GT SCH (10:19)
[2017-02-25] MEDS: DOCUSATE SODIUM 100 MG CAPSULE PO SCH (10:19)
[2017-02-25] MEDS: FLUDROCORTISONE 0.1 MG TABLET GT SCH (10:19)
[2017-02-25] MEDS: MEMANTINE HCL 5 MG TABLET GT SCH (10:19)
[2017-02-25] MEDS: VALPROIC ACID 250 MG/5 ML UDC GT SCH ×2 (10:29→13:35)
--- NOTE | 2017-02-25 12:54 | NUR ---
RELAYED TO DR. VILLATORO SUBACUTE C/O GAETANO REFUSED TO TAKE PT. SINCE SBP ON 'S,CM MADE AWARE,REVIEWD MEDS WITH DR. VILLATORO WILL FF. UP.
[2017-02-25] MEDS ORDERED: MIDODRINE HCL (5MG) 5 MG TABLET PO SCH (13:00)
--- NOTE | 2017-02-25 15:58 | NUR ---
PATIENT RECEIVED TRACHED ON PB 840 VENT. ALARMS VERIFIED AND AUDIBLE. SUCTIONED AND LAVAGED MODERATE-LARGE THICK WESLEY SECRETIONS. VENT PLUGGED INTO RED OUTLET. AMBU BAG AT [facility].
--- NOTE | 2017-02-25 16:42 | NUR ---
1637: Patient was discharged and sent to [facility], with portable ventilator and oxygen, Midline was flushed with saline. Report given to ambulance personel. Last BP 109/74 left arm.
== END 2017-02-25 16:47 | DRG 870 ==
LOC: ER 13:52 → TELE1 17:47 → TELE-TD 18:18 → TELE1 02-18 09:59
PROVIDERS: ADMIT Internal Medicine; ATTEND Internal Medicine
PROC: 5A1955Z Respiratory Ventilation, Greater than 96 Consecutive Hours (ICD-10-PCS; principal; 2017-02-17)
DX: A41.9 Sepsis, unspecified organism (principal); N17.0 Acute kidney failure with tubular necrosis; Z99.11 Dependence on respirator [ventilator] status; J96.11 Chronic respiratory failure with hypoxia; R53.2 Functional quadriplegia; J96.12 Chronic respiratory failure with hypercapnia; Z93.0 Tracheostomy status; E44.1 Mild protein-calorie malnutrition; N39.0 Urinary tract infection, site not specified; Z66 Do not resuscitate; D63.8 Anemia in other chronic diseases classified elsewhere; B96.1 Klebsiella pneumoniae [K. pneumoniae] as the cause of diseases classified elsewhere; D69.6 Thrombocytopenia, unspecified; E78.5 Hyperlipidemia, unspecified; E83.39 Other disorders of phosphorus metabolism; E83.42 Hypomagnesemia; E87.6 Hypokalemia; F03.90 Unspecified dementia, unspecified severity, without behavioral disturbance, psychotic disturbance, mood disturbance, and anxiety; F20.9 Schizophrenia, unspecified; K21.9 Gastro-esophageal reflux disease without esophagitis; R13.10 Dysphagia, unspecified; Z79.01 Long term (current) use of anticoagulants; Z79.899 Other long term (current) drug therapy; Z87.891 Personal history of nicotine dependence; Z93.1 Gastrostomy status; E88.09 Other disorders of plasma-protein metabolism, not elsewhere classified; J84.10 Pulmonary fibrosis, unspecified; F09 Unspecified mental disorder due to known physiological condition
CPT/HCPCS: 31720; 36415; 36569; 36600; 71010-TC; 80048-TC; 80061-TC; 80076-TC; 80202-TC; 81000-TC; 82803-TC; 83605-TC; 83735-TC; 84100-TC; 84484-TC; 85025-TC; 85730-TC; 87040-TC; 87081-TC; 87086-TC; 87186-TC; 94002-TC; 94003-TC; 94760-TC; 99082-TC; A4606; A4623; A6402; J1650; J1956; J2543; J3370; J3475; J7030; J7040; J7050; J7060; Z7610

== ENCOUNTER 2017-12-01 14:05 | Inpatient (IN) | payer MEDICARE, OTHER ==
[~2017-12-01] VITALS: Ht 152.4 cm; Wt 82.6 kg
[~2017-12-01 14:05] MED LIST changes: -ALBU1.25 NEB; +ALBU2.5V38 IH; -AMIN30LI27 GT; -ASCO500S2 GT; +BISA10SU61 RC; +CALC-883 GT; -CHLO473M3 PO; +DOCU-141 GT; +FLUD0.1T GT; +FOLI1TAB16 GT; -GUAI100S11 GT; -HALO5TAB GT; -MAG30ORA GT; +MAGN400O6 GT; +MEMA10TA GT; +METO25TA6 GT; -MUPI22OI7 TP; -Nutritional Supplement/Fiber GT; +OLAN5TAB3 GT; -Olanzapine GT; -Ondansetron Hcl/Pf IVP; -PANT40VI GT; -QUET25TA GT; -RIVA10TA PO; +VALP250S3 GT; -VALPROIC ACID GT; -Zolpidem Tartrate PO
--- NOTE | 2017-12-01 14:20 | NUR ---
PT BIB RA WITH RT WHO CAME IN DUE TO ELEVATED BUN OF 75, ON MECHANICAL VENT AND TRACH. 02 SAT OF 100%. PATIENT OPENS HER EYES. GT NOTED AND CLAMPED. KEPT PATIENT CLEAN AND COMFORTABLE. WILL CONTINUE TO MONITOR.
--- NOTE | 2017-12-01 14:25 | NUR ---
DR. AGUILAR AT BEDSIDE FOR EVAL.
[2017-12-01] MEDS ORDERED: IV NS 0.9% 500 ML BAG IV ONE (14:30)
[2017-12-01] MEDS ORDERED: IV NS 0.9% 1,000 ML BAG IV ONE (15:00)
[2017-12-01] MEDS ORDERED: ACETAMINOPHEN 650 MG/SUPP.RECT RC ONE ×2 (15:30→15:45)
[2017-12-01] MEDS ORDERED: CLON0.1T GT (16:04)
[2017-12-01 16:31] LABS: BASOPHILS # (AUTO) 0.1 /CMM (0.0-0.2); BASOPHILS % (AUTO) 0.6 % (0.0-2.0); EOSINOPHILS % (AUTO) 0.1 % (0.0-6.0); HEMATOCRIT 27 % (33-45); HEMOGLOBIN 8.6 g/dL (11.5-14.8); LYMPHOCYTES % (AUTO) 11.8 % (20.0-44.0); MEAN CORPUSCULAR HGB CONC 32 g/dl (31.0-36.0); MEAN CORPUSCULAR VOLUME 95 fL (82-100); MONOCYTES # (AUTO) 1.7 /CMM (0.1-1.30); NEUTROPHILS # (AUTO) 13.2 /CMM (1.8-8.9); NEUTROPHILS % (AUTO) 77.5 % (43.0-81.0); PLATELET COUNT (AUTO) 95 /CMM (150-450); RDW COEFFICIENT OF VARIATION 17.1 (11.5-15.0); RED BLOOD CELL COUNT(AUTO) 2.85 MIL/uL (4.0-5.2)
[2017-12-01 16:32] VITALS: BP 120/69
--- NOTE | 2017-12-01 16:35 | NUR ---
RT NOTE PT PLACED ON VENT PER MD ORDER. SETTINGS ENDORSED BY TRANSPORT RT AC 14 500 50% +5. PT HAS PORTEX 8 CUFFED TRACHEOSTOMY TUBE IN PLACE. CUFF INFLATED VIA ASSISTIVE TECHNOLOGY TRAINER. TRACH TUBE MIDLINE AND SECURE. ALARMS SET PER PROTOCOL AND AUDIBLE. VENT PLUGGED IN TO RED OUTLET. AMBU BAG AT BED SIDE. NO DISTRESS NOTED AT MOMENT. Addendum: 12/01/17 at 1639 by AGUILA MICHAELS RT Amended: Links added.
[2017-12-01 16:42] LABS: CALCIUM, SERUM 9.9 mg/dL (8.5-10.1); CARBON DIOXIDE 31 mmol/L (21-32); CHLORIDE 106 mmol/L (98-107); CREATININE 1.2 mg/dL (0.6-1.3); GLUCOSE 91 mg/dL (74-106); POTASSIUM 4.2 mmol/L (3.5-5.1); SODIUM SERUM 142 mmol/L (136-145); UREA NITROGEN, BLOOD 72 mg/dL (7-18)
[2017-12-01 16:48] LABS: ALBUMIN 1.6 g/dL (3.4-5.0); ALKALINE PHOSPHATASE 103 U/L (46-116); BILIRUBIN,DIRECT 0.2 mg/dL (0.0-0.2); BILIRUBIN,TOTAL 0.4 mg/dL (0.2-1.0); TOTAL PROTEIN, SERUM 6.2 g/dL (6.4-8.2)
[2017-12-01] MEDS ORDERED: VANCOMYCIN 1 GM in IV D5W 250 ML IV ONE (17:00)
[2017-12-01] MEDS ORDERED: CEFEPIME 1 GM in IV D5W 50 ML IV ONE (17:00)
[2017-12-01] MEDS ORDERED: IV NS 0.9% 500 ML IV ONE ×2 (17:00→17:30)
--- NOTE | 2017-12-01 17:11 | NUR ---
CALLED [employer] FLOORING SALES MANAGER WAS PAGED.
[2017-12-01 17:18] LABS: ALANINE AMINOTRANSFERASE < 6 U/L (12-78); ASPARTATE AMINOTRANSFERASE 8 U/L (15-37)
[2017-12-01] MEDS ORDERED: IV NS 0.9% 1,000 ML IV PRN (17:36)
[2017-12-01 17:48] LABS: INR 1.16 (0.85-1.15)
[2017-12-01 17:49] LABS: BILIRUBIN,URINE Negative (NEGATIVE); BLOOD, URINE Moderate Ery/uL (NEGATIVE); COLOR,URINE Yellow (YELLOW); KETONES,URINE Negative (NEGATIVE); LEUKOCYTE ESTERASE ,URINE Negative (NEGATIVE); NITRITE, URINE Negative (NEGATIVE); PH,URINE 5.5 (5.0-8.0); PROTEIN,URINE Negative (NEGATIVE); UGLUCOSE Negative (NEGATIVE)
[2017-12-01 17:50] LABS: APPEARANCE,URINE HAZY (CLEAR)
[2017-12-01 18:00] LABS: BACTERIA,URINE Few /HPF (None Seen); SQUAMOUS EPITHELIAL CELL,UR Few /HPF (None Seen); URINE AMORPHOUS URATE Moderate /HPF (None Seen)
[2017-12-01] MEDS ORDERED: HYDROCODONE/APAP 5/325MG 1 EACH TABLET PO PRN (18:00)
[2017-12-01] MEDS ORDERED: Z GUARD REMEDY 2 OZ OINT TP PRN (18:00)
[2017-12-01] MEDS ORDERED: ACETAMINOPHEN 325 MG TABLET PO PRN (18:00)
[2017-12-01] MEDS ORDERED: ONDANSETRON HCL/PF 4 MG/2 ML VIAL IVP PRN (18:00)
[2017-12-01] MEDS ORDERED: ZOLPIDEM TARTRATE 5 MG TABLET PO PRN (18:00)
[2017-12-01] MEDS ORDERED: MAG HYDROX/AL HYDROX/SIMETH 30 ML UDC PO PRN (18:00)
[2017-12-01] MEDS ORDERED: MAGNESIUM HYDROXIDE 30 ML UDC PO PRN (18:00)
[2017-12-01 18:16] LABS: BAND % (MANUAL) 12 % (0.0-5.0); LYMPHOCYTES % (MANUAL) 20 % (16-48); MONOCYTES % (MANUAL) 8 % (0-11.0); NEUTROPHILS % (MANUAL) 60 (42-76)
[2017-12-01] MEDS ORDERED: FEE PK DOSING 1 MIN EA MC ONE (18:44)
--- NOTE | 2017-12-01 18:44 | NUR ---
REPORT GIVEN TO GILBERT TO CONTINUE CARE.
--- NOTE | 2017-12-01 19:13 | NUR ---
KAYLEY RN INITIAL NOTE RECEIVED PATIENT VIA GURNEY. PATIENT AWAKE, DOESN'T FOLLOW COMMANDS, NON-VERBAL, TRACH, VENT DEPENDENT. NO S/S OF PAIN OR DISCOMFORT. NO RESPIRATORY DISTRESS NOTED. WITH VENT SETTINGS AC 14, TV 500, FIO2 50%, PEEP 5. NOTED WITH THICK YELLOW SECRETIONS, SUCTIONED NEEDED. AFEBRILE AT THIS TIME. ON TELE MONITOR SR. WITH F/C PATENT AND INTACT, DRAINING BY GRAVITY. WITH GT PATENT AND INTACT, IN PLACE, CLAMPED. WITH BUE AND BLE EDEMA NOTED. ALAINA PICC LINE PATENT AND INTACT. SKIN ASSESSMENT DONE. HOB ELEVATED. SIDE RAILS UP AND LOCKED. BED KEPT AT LOWEST POSITION. CALL LIGHT KEPT WITHIN EASY REACH. WILL CONTINUE TO MONITOR. Addendum: 12/01/17 at 2248 by KATIE COOPER RN WRONG TIME: PATIENT ARRIVED AT 1930
[2017-12-01 19:20] VITALS: BP 84/69
[2017-12-01 19:47] VITALS: BP 100/53
[2017-12-01] MEDS: PIPERACILLIN /TAZOBACTAM 3.375 G in IV D5W 50 ML IV SCH (20:56)
--- NOTE | 2017-12-01 23:07 | NUR ---
KAYLEY RN NOTE NOTED ON PREVIOUS RECORD FROM FACILITY PATIENT WITH ALLERGY TO ZOSYN, [facility], SPOKE WITH MIGUEL A, CONFIRMED ALLERGY BUT REACTION IS UNKNOWN. INFORMED MD DR. KELLY REGARDING ALLERGY TO ZOSYN AND FIRST DOSE WAS GIVEN, BUT HAD NO REACTION. PER MD CONTINUE ZOSYN, PATIENT IS NOT ALLERGIC. NOTED. WILL CONTINUE TO MONITOR.
[2017-12-02] VITALS (33 sets, daily range): BP systolic 61–126; BP diastolic 29–79
[2017-12-02] MEDS: PIPERACILLIN /TAZOBACTAM 3.375 G in IV D5W 50 ML IV SCH ×4 (01:42→18:59)
[2017-12-02 03:24] LABS: BASOPHILS % (AUTO) 0.4 % (0.0-2.0); EOSINOPHILS % (AUTO) 0.1 % (0.0-6.0); HEMATOCRIT 23 % (33-45); LYMPHOCYTES # (AUTO) 1.9 /CMM (0.8-4.8); LYMPHOCYTES % (AUTO) 20.4 % (20.0-44.0); MEAN CORPUSCULAR HGB CONC 30 g/dl (31.0-36.0); MEAN CORPUSCULAR VOLUME 98 fL (82-100); MONOCYTES % (AUTO) 10.9 % (2.0-12.0); NEUTROPHILS # (AUTO) 6.2 /CMM (1.8-8.9); NEUTROPHILS % (AUTO) 68.2 % (43.0-81.0); PLATELET COUNT (AUTO) 75 /CMM (150-450); RDW COEFFICIENT OF VARIATION 18.6 (11.5-15.0); RED BLOOD CELL COUNT(AUTO) 2.37 MIL/uL (4.0-5.2); WHITE BLOOD COUNT (AUTO) 9.2 K/uL (4.3-11.0)
[2017-12-02 04:08] LABS: ALANINE AMINOTRANSFERASE < 6 U/L (12-78); ALKALINE PHOSPHATASE 75 U/L (46-116); ASPARTATE AMINOTRANSFERASE 7 U/L (15-37); BILIRUBIN,TOTAL 0.5 mg/dL (0.2-1.0); CALCIUM, SERUM 8.9 mg/dL (8.5-10.1); CARBON DIOXIDE 29 mmol/L (21-32); CHLORIDE 108 mmol/L (98-107); CREATININE 1.2 mg/dL (0.6-1.3); GLUCOSE 74 mg/dL (74-106); MAGNESIUM 1.8 mg/dL (1.8-2.4); PHOSPHORUS 3.8 mg/dL (2.5-4.9); POTASSIUM 3.6 mmol/L (3.5-5.1); SODIUM SERUM 143 mmol/L (136-145); TOTAL PROTEIN, SERUM 5.4 g/dL (6.4-8.2); UREA NITROGEN, BLOOD 59 mg/dL (7-18)
[2017-12-02 04:11] LABS: ALBUMIN 1.3 g/dL (3.4-5.0)
[2017-12-02 04:16] LABS: HDL CHOLESTEROL 14 mg/dL (40-60); LDL 31 mg/dL (0-99); THYROID STIMULATING HORMONE 1.151 uIU/mL (0.358-3.74); TRIGLYCERIDES 53 mg/dL (30-150)
[2017-12-02 04:27] LABS: CHOLESTEROL < 50 mg/dL (<200)
[2017-12-02] MEDS: VANCOMYCIN 0.75 GM in IV D5W 250 ML IV SCH ×2 (05:20→17:50)
--- NOTE | 2017-12-02 06:00 | NUR ---
KAYLEY RN NOTE RELAYED TO CRITICAL LAB RESULT H/H 7.0/23 AND ALBUMIN OF 1.3. NO ACTIVE BLEEDING NOTED. WITH ORDERS FOR STAT REPEAT CBC, ALBUMIN. NOTED. LABS MADE AWARE.
[2017-12-02 07:06] LABS: BASOPHILS % (AUTO) 0.2 % (0.0-2.0); EOSINOPHILS % (AUTO) 0.1 % (0.0-6.0); HEMATOCRIT 26 % (33-45); LYMPHOCYTES # (AUTO) 2.4 /CMM (0.8-4.8); LYMPHOCYTES % (AUTO) 15.2 % (20.0-44.0); MEAN CORPUSCULAR HGB CONC 31 g/dl (31.0-36.0); MEAN CORPUSCULAR VOLUME 98 fL (82-100); MONOCYTES # (AUTO) 1.5 /CMM (0.1-1.30); MONOCYTES % (AUTO) 9.6 % (2.0-12.0); NEUTROPHILS # (AUTO) 11.8 /CMM (1.8-8.9); NEUTROPHILS % (AUTO) 74.9 % (43.0-81.0); PLATELET COUNT (AUTO) 105 /CMM (150-450); RDW COEFFICIENT OF VARIATION 18.7 (11.5-15.0); RED BLOOD CELL COUNT(AUTO) 2.68 MIL/uL (4.0-5.2); WHITE BLOOD COUNT (AUTO) 15.7 K/uL (4.3-11.0)
--- NOTE | 2017-12-02 07:35 | NUR ---
RN INITIAL NOTES: PATIENT RESTING IN BED. AROUSABLE TO PAIN AND NAME. TRACH/VENT DEPENDENT. NONLABORED BREATHING NOTED ON AC 14, TV 500, FIO2 OF 50%, PEEP OF 5 RIGHT UPPER ARM CENTRAL LINE PATENT AND INTACT. FLOREZ CATHETER INTACT AND DRAINING YELLOW CLEAR URINE. GTUBE CLAMPED PATIENT IS NPO. ASPIRATION PREAUTIONS IMPLEMENTED. BED IN LOWEST LOCKED POSIITON CALL LIGHT WITHIN REACH PATIENT NOTED TO BE SR-ST ON TELE MONITOR WITH OCCASIONAL PACS
--- NOTE | 2017-12-02 07:35 | NUR ---
[facility] RN CLOSING NOTE NO SIGNIFICANT CHANGES OVERNIGHT. ALL DUE MEDS GIVEN. NO RESPIRATORY DISTRESS NOTED. SUCTIONED FREQUENTLY NEEDED. GT PATENT, INTACT, IN PLACE, CLAMPED. F/C PATENT, INTACT, DRAINING BY GRAVITY. KEPT CLEAN AND DRY. TURNED AND REPOSITIONED Q2 AND PRN. SIDE RAILS UP AND LOCKED. SIDE RAILS PADDED. HOB KEPT ELEVATED. CALL LIGHT KEPT WITHIN EASY REACH. CONTINUITY OF CARE ENDORSED TO AM NURSE.
--- NOTE | 2017-12-02 08:15 | NUR ---
DR VILLATORO NOTIFIED DURING ROUNDINGS THAT PATIENT CURRENTLY NPO AND THAT MED RECON IS NOT DONE YET.
--- NOTE | 2017-12-02 08:48 | NUR ---
PER DR DE LOS SANTOS, STAT CHEST XRAY AND STAT ABG VERBAL READBACK DONE
[2017-12-02 09:07] LABS: ABG BASE EXCESS -1.1 mmol/L; ABG PCO2 50.8 mmHg (35.0-45.0); ABG PH 7.316 (7.350-7.450); ABG PO2 55.1 mmHg (75.0-100.0); AaDO2 244.3 mmHg; COHb 0.4 % (0.5-1.5); MetHb 0.5 % (0.0-1.5); O2Hb 80.3 % (94.0-97.0); PEEP,BG 5 cm H2O; SITE, ABG Right Radial; VT, ABG 500 mL
--- NOTE | 2017-12-02 09:14 | NUR ---
DR DE LOS SANTOS INFORMED OF ABG RESULTS. PER HIS ORDERS, INCREASE FIO2 TO 55% TV TO 550 VERBAL READBACK DONE
--- NOTE | 2017-12-02 09:18 | NUR ---
VENT CHANGES BELOW MADE PER DR DE LOS SANTOS: VT 550 FIO2 55% Addendum: 12/02/17 at 0919 by JOSH PUENTE RT Amended: Links added.
[2017-12-02] MEDS ORDERED: LORAZEPAM INJ 2 MG/ML VIAL IVP PRN (09:30)
[2017-12-02] MEDS: IPRATROPIUM NEB FS 0.5 MG/2.5 ML AMPUL.NEB NEB SCH ×5 (09:30→23:38)
[2017-12-02] MEDS ORDERED: ALBUTEROL HALF STRENGTH 1.25 MG/3 ML VIAL.NEB NEB SCH (09:30)
[2017-12-02] MEDS: methylPREDNISolone SOD SUCC 125 MG/2ML VIAL IV SCH ×2 (10:21→17:54)
[2017-12-02] MEDS: HEPARIN SODIUM, PORCINE 5000 UNITS/1 ML VIAL SQ SCH ×2 (10:30→22:30)
[2017-12-02] MEDS: ALBUTEROL HALF STRENGTH 1.25 MG/3 ML VIAL.NEB NEB SCH ×4 (11:26→23:38)
--- NOTE | 2017-12-02 11:32 | NUR ---
PER DR DE LOS SANTOS, HOLD HEPARIN AND ORDER DVT PUMPS DUE TO FLUCTUATING H&H AND POSSIBLE GI BLEED . VERBAL READBACK DONE .NO SIGNS OF BLEEDING NOTED. NO BM YET. COLLECTION ORDER FOR OB PLACED PER DR DE LOS SANTOS, NO REPEAT ABG. VERBAL READBACK DONE
--- NOTE | 2017-12-02 11:54 | NUR ---
VERIFIED WITH MANUELA NAVARRETE, FROM [facility] THAT PATIENT DOES NOT RECEIVE GTUBE FEEDING. CURRENTLY ON PUREED DIET AT THE FACILITY THE RECORD IN THAT CHART INDICATES. AWAITING ON SPEECH EVALUATION PER ORDERS. PATIENT CURRENTLY NPO DIETARY CONSULT INITIATED PER DR VILLATORO, D5NS AT 75ML/HOUR TO PREVENT PERIODS OF HYPOGLYCEMIA. VERBAL READBACK DONE
[2017-12-02] MEDS: IV D5/ 0.9% NACL 1,000 ML IV PRN ×2 (12:27→22:22)
--- NOTE | 2017-12-02 18:48 | NUR ---
DR VILLATORO NOTIFIED OF BLOOD PRESSURE READINGS. PER HIS ORDERS, 500 NS BOLUS . VERBAL READBACK DONE
[2017-12-02] MEDS ORDERED: IV NS 0.9% 500 ML IV ONE ×2 (19:00→21:00)
--- NOTE | 2017-12-02 19:25 | NUR ---
RN CLOSING NOTES: PATIENT RESTING IN BED. AROUSABLE TO PAIN AND NAME. TRACH/VENT DEPENDENT. NONLABORED BREATHING NOTED ON AC 14, TV 550, FIO2 OF 55%, PEEP OF 5 RIGHT UPPER ARM PICC LINE PATENT AND INTACT. FLOREZ CATHETER INTACT AND DRAINING YELLOW CLEAR URINE. GTUBE PATENT AND INTACT. PATIENT CURRENTLY NPO ASPIRATION PREAUTIONS IMPLEMENTED. BED IN LOWEST LOCKED POSIITON CALL LIGHT WITHIN REACH PATIENT NOTED TO BE SR-ST ON TELE MONITOR WITH OCCASIONAL PACS PATIENT KEPT CLEAN AND DRY THROUGHOUT SHIFT TURNED AND REPOSITIONED Q 2 HOURS. ENDORSED TO KERRI ROY
--- NOTE | 2017-12-02 19:26 | NUR ---
PATIENT HAD X1 BM, SCANT, BROWN AND SOFT. COLLECTED FOR STOOL OB, AND SENT TO LAB HOWEVER, AMOUNT MAY NOT BE ENOUGH FOR LAB ANALYSIS. COLLECTION ENDORSED TO KERRI ROY
--- NOTE | 2017-12-02 19:28 | NUR ---
BLOOD PRESSURE REASSESSED AGAIN WITH MANUAL BLOOD PRESSURE CUFF. 92/60 WITH HR OF 83. ENDORSED TO KERRI ROY
--- NOTE | 2017-12-02 19:45 | NUR ---
1944 PT.'S BP 71/33, 500 ML NS BOLUS ON GOING, PT. ON VENTILATOR, O2 SATURATION AT 99% ON 55% FIO2, OPENS EYES BRIEFLY TO TOUCH, NO SIGNS OF DISTRESS NOTED.
--- NOTE | 2017-12-02 20:10 | NUR ---
2009 B/P 79/36 WHEN RE-CHECKED, NS BOLUS STILL ON GOING TO ALAINA PICC LINE, PT. REMAINS RESPONSIVE TO STIMULI. UNABLE TO REPOSITION AT THIS TIME DUE TO UNSTABLE BLOOD PRESSURE. WILL CONT. TO MONITOR.
--- NOTE | 2017-12-02 20:52 | NUR ---
RECEIVED PATIENT WITH THE LOW bp (LOOK AT THE FLOW SHEET) . DR. ZAPATA NOTIFIED ANOTHER NS 500 ML BOLUS WILL BE GIVEN. WILL REASSESS AFTER. CONTINUE TO MONITOR
--- NOTE | 2017-12-02 21:25 | NUR ---
BP REMAINS LOW AFTER GIVING 2ND BOLUS, ORDER TO TRANSFER TO ICU RECEIVED
--- NOTE | 2017-12-02 21:25 | NUR ---
2125 TRANSFERRED TO ICU ON ACLS PROTOCOL, B/P 33 WHEN CHECKED, PT. AWAKE BUT DOES NOT FOLLOW ANY COMMANDS, NO SIGNS OF DISTRESS, NS 500 ML INFUSING.
--- NOTE | 2017-12-02 21:30 | NUR ---
CITIZEN PARTICIPATION SPECIALIST: RECEIVED PT TRANSFERRED FROM [facility] FOR HYPOTENSION. 2ND BOLUS NS INFUSING AT THIS TIME. PT OPENS EYES, LETHARGIC AND UNABLE TO FOLLOW COMMANDS. VENT SETTINGS ORDERED. GT CLAMPED. F/C PATENT AND INTACT DRAINING NASREEN COLORED URINE. WILL CONTINUE TO MONITOR.
--- NOTE | 2017-12-02 21:32 | NUR ---
REPORT GIVEN TO MANUELA [facility] ICU FOR CONTINUE OF CARE
--- NOTE | 2017-12-02 21:35 | NUR ---
RESISTOR COATER: SR WT PAC ON GATE OPERATOR. NO ACUTE DISTRESS, NO EVIDENCE OF DISCOMFORT.
[2017-12-02 21:50] LABS: OCCULT BLOOD STOOL NEGATIVE (NEGATIVE)
[2017-12-02] MEDS ORDERED: NOREPINEPHRINE 4 MG/4 ML AMPUL IV ONE (22:07)
[2017-12-02] MEDS: NOREPINEPHRINE 16 MG in IV D5W 500 ML IV PRN (22:15)
--- NOTE | 2017-12-02 22:15 | NUR ---
ENGINEER AND GEOLOGIST: ZULAY 500ML BOLUS FINISHED. SBP IS BELOW 90. WILL START LEVOPHED ORDERED.
[2017-12-03] VITALS (107 sets, daily range): BP systolic 80–145; BP diastolic 4–118
[2017-12-03] MEDS: PIPERACILLIN /TAZOBACTAM 3.375 G in IV D5W 50 ML IV SCH ×3 (00:07→11:46)
[2017-12-03] MEDS: methylPREDNISolone SOD SUCC 125 MG/2ML VIAL IV SCH ×3 (02:33→17:30)
--- NOTE | 2017-12-03 02:47 | NUR ---
PATIENT RECEIVED TRACHED ON MECHANICAL VENTILATION. AMBU BAG @ HOB. VENT PLUGGED INTO RED OUTLET. ALARMS ON AND AUDIBLE. TX GIVEN, NO ADVERSE REACTIONS NOTED. SX DONE, TRACH SECURED AND PATENT. MODERATE THICK YELLOW SECRETIONS NOTED. WILL MONITOR T/O SHIFT. Addendum: 12/03/17 at 0248 by SAMUEL WALLS RT Amended: Links added.
[2017-12-03] MEDS: ALBUTEROL HALF STRENGTH 1.25 MG/3 ML VIAL.NEB NEB SCH ×5 (04:22→20:07)
[2017-12-03] MEDS: IPRATROPIUM NEB FS 0.5 MG/2.5 ML AMPUL.NEB NEB SCH ×5 (04:22→20:07)
[2017-12-03 04:51] LABS: CALCIUM, SERUM 9.1 mg/dL (8.5-10.1); CARBON DIOXIDE 27 mmol/L (21-32); CHLORIDE 106 mmol/L (98-107); CREATININE 1.3 mg/dL (0.6-1.3); GLUCOSE 205 mg/dL (74-106); POTASSIUM 3.6 mmol/L (3.5-5.1); SODIUM SERUM 141 mmol/L (136-145); UREA NITROGEN, BLOOD 58 mg/dL (7-18)
[2017-12-03] MEDS: VANCOMYCIN 0.75 GM in IV D5W 250 ML IV SCH (05:46)
--- NOTE | 2017-12-03 06:50 | NUR ---
GRINDER SET UP OPERATOR SURFACE: STILL ON LEVOPHED AT 13MCG/MIN AND D5NS AT 75ML/HR. VENT SETTINGS ORDERED WT NO ACUTE DISTRESS. NO EVIDENCE OF DISCOMFORT. REMAINED AFEBRILE THROUGHOUT THE SHIFT. WILL ENDORSE TO DAY SHIFT FOR CONTINUITY OF CARE.
--- NOTE | 2017-12-03 08:33 | NUR ---
received pt from material handler 1st shift, alert, does not follow commands, SR, receiving levo at 13 mcg, lungs congested, edema all BL extremities, GT clamped, f/c OK output, v/s stable, no pain, pt turned and repositioned.
[2017-12-03] MEDS: HEPARIN SODIUM, PORCINE 5000 UNITS/1 ML VIAL SQ SCH ×2 (09:33→22:33)
[2017-12-03 09:59] LABS: HEMATOCRIT 25 % (33-45); HEMOGLOBIN 7.8 g/dL (11.5-14.8); LYMPHOCYTES # (AUTO) 0.5 /CMM (0.8-4.8); LYMPHOCYTES % (AUTO) 3.1 % (20.0-44.0); MEAN CORPUSCULAR HGB CONC 31 g/dl (31.0-36.0); MEAN CORPUSCULAR VOLUME 98 fL (82-100); MONOCYTES # (AUTO) 0.4 /CMM (0.1-1.30); MONOCYTES % (AUTO) 2.2 % (2.0-12.0); NEUTROPHILS # (AUTO) 16.3 /CMM (1.8-8.9); NEUTROPHILS % (AUTO) 94.7 % (43.0-81.0); PLATELET COUNT (AUTO) 171 /CMM (150-450); RDW COEFFICIENT OF VARIATION 18.6 (11.5-15.0); RED BLOOD CELL COUNT(AUTO) 2.59 MIL/uL (4.0-5.2); WHITE BLOOD COUNT (AUTO) 17.2 K/uL (4.3-11.0)
[2017-12-03 10:05] LABS: CALCIUM, SERUM 8.8 mg/dL (8.5-10.1); CARBON DIOXIDE 28 mmol/L (21-32); CHLORIDE 107 mmol/L (98-107); CREATININE 1.2 mg/dL (0.6-1.3); GLUCOSE 212 mg/dL (74-106); POTASSIUM 3.5 mmol/L (3.5-5.1); SODIUM SERUM 143 mmol/L (136-145); UREA NITROGEN, BLOOD 52 mg/dL (7-18)
[2017-12-03 10:14] LABS: ABG BASE EXCESS 2.4 mmol/L; ABG OXYGEN SATURATION 93.1 % (92.0-98.5); ABG PCO2 42.4 mmHg (35.0-45.0); ABG PH 7.423 (7.350-7.450); ABG PO2 72.3 mmHg (75.0-100.0); AaDO2 236.5 mmHg; COHb 0.3 % (0.5-1.5); MetHb 0.7 % (0.0-1.5); O2Hb 92.2 % (94.0-97.0); PEEP,BG 5 cm H2O; SITE, ABG Right Radial; VT, ABG 550 mL
[2017-12-03] MEDS: PANTOPRAZOLE 40 MG VIAL IV SCH (11:21)
--- NOTE | 2017-12-03 12:10 | NUR ---
pt is resting in the bed, v/s stable, no pain, pt turned and repositioned q2hrs.
[2017-12-03] MEDS: IV D5/ 0.9% NACL 1,000 ML IV PRN (13:08)
[2017-12-03] MEDS: NOREPINEPHRINE 16 MG in IV D5W 500 ML IV PRN (13:11)
[2017-12-03] MEDS: NYSTATIN TOP POWDER 15 GM BOTTLE TP SCH (15:49)
[2017-12-03] MEDS: NEOMY SULF/BACITRAC ZN/POLY 15 GM TUBE TP SCH (15:49)
--- NOTE | 2017-12-03 16:13 | NUR ---
pt is resting in the bed, SR, SB, on levo at 5mcg, v/s stable, no pain, pt cleaned, changed and repositioned q2hrs.
[2017-12-03] MEDS: VANCOMYCIN 500 MG in IV D5W 100 ML IV SCH (16:39)
[2017-12-03] MEDS: PIPERACILLIN /TAZOBACTAM 2.25 G in IV D5W 50 ML IV SCH ×2 (17:30→23:27)
--- NOTE | 2017-12-03 19:30 | NUR ---
ICU/RN RECEIVED PT ON VENT VIA TRACH,EYES OPEN,DOES NOT TRACK,DOES NOT FOLLOW COMMANDS.ON LEVOPHED DRIP AT 7MCG/MIN,W SBP 0F 118MMHG.
--- NOTE | 2017-12-03 21:57 | NUR ---
RECEIVED PT TRACHED ON VENT. PT TOLERATING VENT SETTINGS. SX'D FOR MOD AMT OF THICK YELLOW SECRETIONS. VENT ALARMS SET AND AUDIBLE. TRACH CUFF FLANGER, SECURED. VENT PLUGGED INTO RED OUTLET. AMBU BAG AT BEDSIDE. WILL CONTINUE TO MONITOR. Addendum: 12/03/17 at 2158 by MITCHEL TURNER RT Amended: Links added.
[2017-12-04] VITALS (105 sets, daily range): BP systolic 74–143; BP diastolic 33–103
[2017-12-04] MEDS: IPRATROPIUM NEB FS 0.5 MG/2.5 ML AMPUL.NEB NEB SCH ×7 (00:16→23:56)
[2017-12-04] MEDS: ALBUTEROL HALF STRENGTH 1.25 MG/3 ML VIAL.NEB NEB SCH ×7 (00:16→23:56)
[2017-12-04] MEDS: NYSTATIN TOP POWDER 15 GM BOTTLE TP SCH ×2 (01:36→14:19)
[2017-12-04] MEDS: methylPREDNISolone SOD SUCC 125 MG/2ML VIAL IV SCH ×3 (01:43→17:16)
--- NOTE | 2017-12-04 02:00 | NUR ---
ICU/RN VENT KEEPS ALARMING-CIRCUIT DISCONNECT CONTINUOUSLY PT AWAKE,CIRCUITS CHECKED,ALL PORTS ARE CONNECTED,SUCTIONED PT W/SLIGHT DIFFICULTY SUCTIONING.
[2017-12-04] MEDS: VANCOMYCIN 500 MG in IV D5W 100 ML IV SCH ×2 (04:35→16:10)
[2017-12-04] MEDS: IV D5/ 0.9% NACL 1,000 ML IV PRN ×2 (04:35→22:18)
[2017-12-04 05:09] LABS: CARBON DIOXIDE 27 mmol/L (21-32); CHLORIDE 109 mmol/L (98-107); CREATININE 1.2 mg/dL (0.6-1.3); GLUCOSE 172 mg/dL (74-106); POTASSIUM 3.1 mmol/L (3.5-5.1); SODIUM SERUM 145 mmol/L (136-145); UREA NITROGEN, BLOOD 50 mg/dL (7-18)
[2017-12-04] MEDS: PIPERACILLIN /TAZOBACTAM 2.25 G in IV D5W 50 ML IV SCH ×3 (05:56→17:16)
--- NOTE | 2017-12-04 07:00 | NUR ---
ICU/RN UPDATED W/ PT'S REPORT FROM YESTERDAY.
[2017-12-04] MEDS ORDERED: POTASSIUM CL. PREMIX PERIPHER. 50 ML IV SCH (08:00)
--- NOTE | 2017-12-04 08:13 | NUR ---
received pt from zigzag tunnel elastic operator, alert, follows simple commands, SR, SB, on levo at 6mcg, on the vent, lungs congested, pitting edema all 4 extremities, GT clamped, NPO, f/c OK output, v/s stable, no pain, pt turned and repositioned.
[2017-12-04] MEDS: NEOMY SULF/BACITRAC ZN/POLY 15 GM TUBE TP SCH (08:44)
[2017-12-04] MEDS: POTASSIUM CHLORIDE 20 MEQ POWDER PACKET GT SCH (08:44)
--- NOTE | 2017-12-04 09:30 | NUR ---
PATIENT RECEIVED TRACHED ON MECHANICAL VENTILATION. AMBU BAG @ HOB. VENT PLUGGED INTO RED OUTLET. ALARMS ON AND AUDIBLE. TX GIVEN, NO ADVERSE REACTIONS NOTED. SX DONE, TRACH SECURED AND PATENT. MODERATE THICK YELLOW SECRETIONS NOTED. Addendum: 12/04/17 at 0930 by FRANTZ HEREDIA RT Amended: Links added.
[2017-12-04] MEDS: PANTOPRAZOLE 40 MG VIAL IV SCH (10:04)
[2017-12-04] MEDS: HEPARIN SODIUM, PORCINE 5000 UNITS/1 ML VIAL SQ SCH ×2 (10:04→22:30)
--- NOTE | 2017-12-04 10:29 | NUR ---
WOUND CARE CONSULT WOUND CARE RECEIVED CONSULT FOR SACRAL WOUND. WOUND CARE WILL DEFER CONSULT AND ALL TREATMENT PLANS TO SURGICAL TEAM WHO ARE CURRENTLY FOLLOWING. PATIENT WITH MEMO AT 12. ALL PRESSURE ULCER PREVENTION MEASURES ARE NOTED TO BE IN PLACE. WILL SEE PRN.
--- NOTE | 2017-12-04 12:21 | NUR ---
pt is resting in the bed, v/s stable, no pain, pt turned and repositioned q2hrs.
[2017-12-04] MEDS: NOREPINEPHRINE 16 MG in IV D5W 500 ML IV PRN (17:31)
--- NOTE | 2017-12-04 19:15 | NUR ---
ICU/RN RECEIVED PT W/ EYES OPE AND TRACKS.ON VENT PER TRACH W/FI02 OF 50% SATURATION OF99%.ON LEVPHED DRIP AT 3MCG/MIN,SBP OF 100.
--- NOTE | 2017-12-04 23:58 | NUR ---
RECEIVED PT TRACHED ON VENT. PT TOLERATING VENT SETTINGS. SX'D FOR MOD AMT OF THICK YELLOW SECRETIONS. VENT ALARMS SET AND AUDIBLE. TRACH CUFF FAST FOOD TEAM MEMBER, SECURED. VENT PLUGGED INTO RED OUTLET. AMBU BAG AT BEDSIDE. WILL CONTINUE TO MONITOR. Addendum: 12/04/17 at 2358 by MITCHEL TURNER RT Amended: Links added.
[2017-12-05] VITALS (108 sets, daily range): BP systolic 72–153; BP diastolic 21–103
[2017-12-05] MEDS: PIPERACILLIN /TAZOBACTAM 2.25 G in IV D5W 50 ML IV SCH ×4 (00:20→17:10)
--- NOTE | 2017-12-05 01:00 | NUR ---
ICU/RN SUCTIONED TRACH FOR SCANT TO MODERATE AMT THICK YELLOW-TANNISH SECRETIONS
[2017-12-05] MEDS: methylPREDNISolone SOD SUCC 125 MG/2ML VIAL IV SCH ×3 (01:38→17:10)
[2017-12-05] MEDS: NYSTATIN TOP POWDER 15 GM BOTTLE TP SCH ×2 (01:39→13:20)
[2017-12-05] MEDS: IPRATROPIUM NEB FS 0.5 MG/2.5 ML AMPUL.NEB NEB SCH ×6 (03:41→23:25)
[2017-12-05] MEDS: ALBUTEROL HALF STRENGTH 1.25 MG/3 ML VIAL.NEB NEB SCH ×6 (03:41→23:25)
[2017-12-05 05:15] LABS: CALCIUM, SERUM 9.1 mg/dL (8.5-10.1); CARBON DIOXIDE 25 mmol/L (21-32); CHLORIDE 110 mmol/L (98-107); CREATININE 1.2 mg/dL (0.6-1.3); GLUCOSE 155 mg/dL (74-106); MAGNESIUM 1.8 mg/dL (1.8-2.4); POTASSIUM 3.3 mmol/L (3.5-5.1); SODIUM SERUM 143 mmol/L (136-145); UREA NITROGEN, BLOOD 48 mg/dL (7-18)
--- NOTE | 2017-12-05 06:00 | NUR ---
ICU/RN REMAIN ON LEVOPHED DRIP W/ SBP 90'S TO 1OO'S.MONITOR SHOWS SINUS CHHAYA LOW 40'S W/ OCCASIONAL TO FREQUENT PAC'S PLUS W/ BBB.PT AWAKE ALERT FOLLOWS SOME COMMANDS.
--- NOTE | 2017-12-05 07:00 | NUR ---
ICU/RN DOROTHY Pillai UPDATED W/ REPORT.
[2017-12-05 08:00] LABS: HEMATOCRIT 23 % (33-45); LYMPHOCYTES # (AUTO) 0.6 /CMM (0.8-4.8); LYMPHOCYTES % (AUTO) 5.7 % (20.0-44.0); MEAN CORPUSCULAR HGB CONC 30 g/dl (31.0-36.0); MEAN CORPUSCULAR VOLUME 98 fL (82-100); MONOCYTES # (AUTO) 0.1 /CMM (0.1-1.30); MONOCYTES % (AUTO) 1.1 % (2.0-12.0); NEUTROPHILS # (AUTO) 9.5 /CMM (1.8-8.9); NEUTROPHILS % (AUTO) 93.2 % (43.0-81.0); PLATELET COUNT (AUTO) 160 /CMM (150-450); RDW COEFFICIENT OF VARIATION 19.1 (11.5-15.0); RED BLOOD CELL COUNT(AUTO) 2.35 MIL/uL (4.0-5.2); WHITE BLOOD COUNT (AUTO) 10.2 K/uL (4.3-11.0)
[2017-12-05 08:05] LABS: HEMOGLOBIN 6.9 g/dL (11.5-14.8)
--- NOTE | 2017-12-05 08:31 | NUR ---
received pt from apprentice plumber, alert, follows simple commands, SR, on levo at 3mcg, on vent, lungs congested, pitting edema all 4 extremities, GT clamped, f/c low output, v/s stable, no pain, pt turned and repositioned.
[2017-12-05 08:43] LABS: ABG BASE EXCESS -0.2 mmol/L; ABG OXYGEN SATURATION 97.8 % (92.0-98.5); ABG PCO2 44.7 mmHg (35.0-45.0); ABG PO2 130.2 mmHg (75.0-100.0); COHb 0.3 % (0.5-1.5); MetHb 0.4 % (0.0-1.5); O2Hb 97.1 % (94.0-97.0); SITE, ABG Right Radial
[2017-12-05 09:21] LABS: BAND % (MANUAL) 2 % (0.0-5.0); LYMPHOCYTES % (MANUAL) 2 % (16-48); MONOCYTES % (MANUAL) 2 % (0-11.0); NEUTROPHILS % (MANUAL) 94 (42-76)
[2017-12-05] MEDS: POTASSIUM CHLORIDE 20 MEQ POWDER PACKET GT SCH (09:22)
[2017-12-05] MEDS: NEOMY SULF/BACITRAC ZN/POLY 15 GM TUBE TP SCH (09:23)
[2017-12-05] MEDS: HEPARIN SODIUM, PORCINE 5000 UNITS/1 ML VIAL SQ SCH (09:41)
[2017-12-05] MEDS: PANTOPRAZOLE 40 MG VIAL IV SCH (10:20)
--- NOTE | 2017-12-05 12:34 | NUR ---
pt is resting in the bed, v/s stable, no pain, pt turned and repositioned q2hrs.
[2017-12-05] MEDS: IV D5/ 0.9% NACL 1,000 ML IV PRN (13:58)
--- NOTE | 2017-12-05 15:55 | NUR ---
blood transfusion started.
--- NOTE | 2017-12-05 16:22 | NUR ---
pt is resting in the bed, on levo at 3mcg, v/s stable, no pain, getting blood transfusion, pt cleaned, changed and repositioned q2hrs.
--- NOTE | 2017-12-05 18:25 | NUR ---
1 unit PRBCs transfused, v/s stable, no transfusion reaction.
[2017-12-05] MEDS: NOREPINEPHRINE 16 MG in IV D5W 500 ML IV PRN (18:32)
--- NOTE | 2017-12-05 19:50 | NUR ---
RECEIVED PT TRACHED PORTEX 8 ON VENT WITH NOTED SETTINGS OF AC 14,550,PEEP 5, 50%. PT TOLERATING VENT SETTINGS. PT AWAKE AND ALERT. Q4 BREATHING TX GIVEN ORDERED. NO ADVERSE REACTION NOTED. SUCTIONED MODEARTE AMOUNT OF YELLOW THICK SECRETIONS. VENT ALARMS SET AND AUDIBLE. TRACH PATENT AND SECURED, CUFF GEOSPATIAL ANALYST. VENT PLUGGED INTO RED OUTLET.AMBU BAG AT BEDSIDE. NO RESPIRATORY DISTRESS NOTED AT THIS TIME. WILL CONTINUE TO MONITOR.
--- NOTE | 2017-12-05 20:00 | NUR ---
RN INITIAL NOTES Received pt in bed , alert, follows simple commands, SB, hr 39 on levo at 3mcg, on the vent, lungs congested, pitting edema all 4 extremities, GT clamped, NPO, f/c intact draining to gravity , v/s stable, no pain, r ua picc with fluids infusing as ordered. will cont to monitor
[2017-12-06] VITALS (111 sets, daily range): BP systolic 82–147; BP diastolic 31–100
[2017-12-06] MEDS: HEPARIN SODIUM, PORCINE 5000 UNITS/1 ML VIAL SQ SCH ×3 (00:34→23:27)
[2017-12-06] MEDS: PIPERACILLIN /TAZOBACTAM 2.25 G in IV D5W 50 ML IV SCH ×5 (00:35→23:24)
[2017-12-06] MEDS: methylPREDNISolone SOD SUCC 125 MG/2ML VIAL IV SCH ×3 (01:49→17:23)
[2017-12-06] MEDS: NYSTATIN TOP POWDER 15 GM BOTTLE TP SCH ×2 (01:50→14:52)
[2017-12-06] MEDS: IPRATROPIUM NEB FS 0.5 MG/2.5 ML AMPUL.NEB NEB SCH ×6 (03:24→22:54)
[2017-12-06] MEDS: ALBUTEROL HALF STRENGTH 1.25 MG/3 ML VIAL.NEB NEB SCH ×6 (03:24→22:54)
[2017-12-06 04:59] LABS: HEMATOCRIT 29 % (33-45); LYMPHOCYTES # (AUTO) 0.7 /CMM (0.8-4.8); LYMPHOCYTES % (AUTO) 6.8 % (20.0-44.0); MEAN CORPUSCULAR HGB CONC 31 g/dl (31.0-36.0); MEAN CORPUSCULAR VOLUME 96 fL (82-100); MONOCYTES # (AUTO) 0.3 /CMM (0.1-1.30); MONOCYTES % (AUTO) 2.9 % (2.0-12.0); NEUTROPHILS % (AUTO) 90.3 % (43.0-81.0); PLATELET COUNT (AUTO) 151 /CMM (150-450); RDW COEFFICIENT OF VARIATION 20.5 (11.5-15.0); RED BLOOD CELL COUNT(AUTO) 3.01 MIL/uL (4.0-5.2)
[2017-12-06] MEDS: IV D5/ 0.9% NACL 1,000 ML IV PRN (05:10)
[2017-12-06 06:11] LABS: CALCIUM, SERUM 9.2 mg/dL (8.5-10.1); CARBON DIOXIDE 24 mmol/L (21-32); CHLORIDE 112 mmol/L (98-107); CREATININE 1.1 mg/dL (0.6-1.3); GLUCOSE 145 mg/dL (74-106); MAGNESIUM 1.8 mg/dL (1.8-2.4); PHOSPHORUS 2.8 mg/dL (2.5-4.9); POTASSIUM 3.7 mmol/L (3.5-5.1); SODIUM SERUM 145 mmol/L (136-145); UREA NITROGEN, BLOOD 44 mg/dL (7-18)
--- NOTE | 2017-12-06 06:56 | NUR ---
RN CLOSING NOTE Pt is resting in the bed, SB 40S over shift. On levo at 3mcg, no pain, pt cleaned, changed and repositioned q2hrs. Will endorse to AM shift.
--- NOTE | 2017-12-06 08:10 | NUR ---
RT PATIENT REC'D TRACHED ON [facility] VENT WITH ORDERED SETTINGS. VENT ALARMS CHECKED + AUDIBLE. TRACH SECURE + IN PROPER POSITION. B/S DIM COARSE. PATIENT AIRWAY SUCTIONED AND PATENT WITH MOD AMT OF PALE WESLEY SEMITHICK SECRETIONS. AMBU BAG AT HOB Addendum: 12/06/17 at 1111 by LIZBET WANG RT Amended: Links added.
--- NOTE | 2017-12-06 09:00 | NUR ---
RT PATIENT REFUSED ABG AND BECAME COMBATIVE SWINGING ATTEMPTING TO HIT THE THERAPIST. NO SOB NOTED ON MECH VENT WITH ORDERED SETTINGS. VENT ALARMS CHECKED + AUDIBLE. AMBU BAG AT HOB
[2017-12-06] MEDS: POTASSIUM CHLORIDE 20 MEQ POWDER PACKET GT SCH (09:04)
[2017-12-06] MEDS: NEOMY SULF/BACITRAC ZN/POLY 15 GM TUBE TP SCH (09:16)
[2017-12-06] MEDS: PANTOPRAZOLE 40 MG VIAL IV SCH (11:09)
--- NOTE | 2017-12-06 11:37 | NUR ---
JEVITY 1.[address] VILLATORO AND DIETARY RECOMMENDATION ORDER IS TO START AT 30CC/HOUR, INCREASE BY 10 ML/HOUR EVERY 12 HOURS GOAL IS 50 CC/HOUR
[2017-12-06] MEDS: JEVITY 1.2 CAL 1,000 ML BOTTLE GT PRN (12:38)
--- NOTE | 2017-12-06 13:08 | NUR ---
DR OCASIO NOTIFIED THAT UNABLE TO OBTAIN ABG FOR TODAY. NO NEW ORDERS
--- NOTE | 2017-12-06 14:00 | NUR ---
PER COMPACT ASSEMBLER, RIGHT UPPER EXTREMITY NEGATIVE FOR DVT
[2017-12-06] MEDS: NOREPINEPHRINE 16 MG in IV D5W 500 ML IV PRN (17:33)
--- NOTE | 2017-12-06 19:22 | NUR ---
RECEIVED PT TRACHED PORTEX 8 ON VENT WITH NOTED SETTINGS OF AC 14,550,PEEP 5, 40%. PT TOLERATING VENT SETTINGS. PT AWAKE AND ALERT. Q4 BREATHING TX GIVEN ORDERED. NO ADVERSE REACTION NOTED. SUCTIONED LARGE AMOUNT OF YELLOW THICK SECRETIONS. VENT ALARMS SET AND AUDIBLE. TRACH PATENT AND SECURED, CUFF LUMBER HACKER. VENT PLUGGED INTO RED OUTLET.AMBU BAG AT BEDSIDE. NO RESPIRATORY DISTRESS NOTED AT THIS TIME. WILL CONTINUE TO MONITOR.
--- NOTE | 2017-12-06 19:30 | NUR ---
TRANSMISSION SUPERINTENDENT INITIAL NOTE PT RECEIVED AWAKE AND IN BED. ALERT ONLY TO NAME AND MOUTH WORDS. ON MECH VENT WITH SETTINGS WELL TOLERATED AND SATURATING 100%. TELE-SINUS CHHAYA 57 WITH PAC. IV ALAINA PICC CLEAN AND PATENT. FLOREZ CATHETER IN PLACE AND DRAINING BY GRAVITY. HOB ELEVATED. GT FEEDING WELL TOLERATED AND NO RESIDUALS NOTED. WILL MONITOR.
--- NOTE | 2017-12-06 19:35 | NUR ---
DHIRAJ TO ELLYN RN FOR SUJATA.
[2017-12-07] VITALS (38 sets, daily range): BP systolic 81–141; BP diastolic 29–90
[2017-12-07] MEDS: methylPREDNISolone SOD SUCC 125 MG/2ML VIAL IV SCH ×3 (01:59→17:28)
[2017-12-07] MEDS: NYSTATIN TOP POWDER 15 GM BOTTLE TP SCH ×2 (01:59→13:22)
[2017-12-07] MEDS: IPRATROPIUM NEB FS 0.5 MG/2.5 ML AMPUL.NEB NEB SCH ×6 (03:05→23:12)
[2017-12-07] MEDS: ALBUTEROL HALF STRENGTH 1.25 MG/3 ML VIAL.NEB NEB SCH ×6 (03:05→23:12)
[2017-12-07 05:01] LABS: HEMATOCRIT 28 % (33-45); HEMOGLOBIN 8.6 g/dL (11.5-14.8); LYMPHOCYTES # (AUTO) 0.6 /CMM (0.8-4.8); LYMPHOCYTES % (AUTO) 6.6 % (20.0-44.0); MEAN CORPUSCULAR HGB CONC 31 g/dl (31.0-36.0); MEAN CORPUSCULAR VOLUME 95 fL (82-100); MONOCYTES # (AUTO) 0.3 /CMM (0.1-1.30); MONOCYTES % (AUTO) 3.5 % (2.0-12.0); NEUTROPHILS # (AUTO) 8.2 /CMM (1.8-8.9); NEUTROPHILS % (AUTO) 89.9 % (43.0-81.0); PLATELET COUNT (AUTO) 114 /CMM (150-450); RDW COEFFICIENT OF VARIATION 20.3 (11.5-15.0); RED BLOOD CELL COUNT(AUTO) 2.92 MIL/uL (4.0-5.2); WHITE BLOOD COUNT (AUTO) 9.2 K/uL (4.3-11.0)
[2017-12-07] MEDS: PIPERACILLIN /TAZOBACTAM 2.25 G in IV D5W 50 ML IV SCH ×4 (05:16→23:15)
[2017-12-07 05:18] LABS: CALCIUM, SERUM 9.2 mg/dL (8.5-10.1); CARBON DIOXIDE 24 mmol/L (21-32); CHLORIDE 113 mmol/L (98-107); GLUCOSE 144 mg/dL (74-106); MAGNESIUM 1.8 mg/dL (1.8-2.4); PHOSPHORUS 2.7 mg/dL (2.5-4.9); POTASSIUM 4.1 mmol/L (3.5-5.1); SODIUM SERUM 145 mmol/L (136-145); UREA NITROGEN, BLOOD 43 mg/dL (7-18)
--- NOTE | 2017-12-07 07:32 | NUR ---
MACHINE BANDER AND CELLOPHANER HELPER CLOSING NOTE PT REMAINED STABLE DURING SHIFT. NO ACUTE DISTRESS NOTED. KEPT CLEAN AND DRY. REPOSITIONED Q2H. VENT SETTINGS WELL TOLERATED. TG FEEDING INCREASED TO 40ML/HR AND NO RESIDUALS NOTED. WILL ENDORSE TO NEXT SHIFT FOR CONTINUITY OF CARE.
--- NOTE | 2017-12-07 07:48 | NUR ---
RT PATIENT REC'D TRACHED ON [facility] VENT WITH ORDERED SETTINGS. VENT ALARMS CHECKED + AUDIBLE. TRACH SECURE + IN PROPER POSITION. B/S DIM COARSE. PATIENT AIRWAY SUCTIONED AND PATENT WITH MOD AMT OF PALE WESLEY SEMITHICK SECRETIONS. AMBU BAG AT HOB Addendum: 12/07/17 at 1047 by LIZBET WANG RT Amended: Links added.
--- NOTE | 2017-12-07 08:20 | NUR ---
RT PATIENT AWAKE + ALERT VERBALLY REFUSED ABG. DR DE LOS SANTOS AWARE.
[2017-12-07] MEDS: NEOMY SULF/BACITRAC ZN/POLY 15 GM TUBE TP SCH (09:16)
[2017-12-07] MEDS: PANTOPRAZOLE 40 MG VIAL IV SCH (10:00)
[2017-12-07] MEDS: HEPARIN SODIUM, PORCINE 5000 UNITS/1 ML VIAL SQ SCH ×2 (10:00→23:37)
[2017-12-07] MEDS: POTASSIUM CHLORIDE 20 MEQ POWDER PACKET GT SCH (10:33)
[2017-12-07] MEDS: PROSOURCE / PROSTAT (PYXIS) 30 ML UDC GT SCH (13:22)
[2017-12-07] MEDS: JEVITY 1.2 CAL 1,000 ML BOTTLE GT PRN (14:28)
--- NOTE | 2017-12-07 17:00 | NUR ---
RN NOTE UPON REVIEWING CHART PT HAD ALLERGY TO ZOSYN DOCUMENTED, PHARMACY AWARE. NO REACTION NOTED , NPO SOB, NO RASH, PT HAS BEEN RECEIVING IT SINCE 12/03/17.
[2017-12-07] MEDS: VALPROIC ACID 250 MG/5 ML UDC GT SCH (17:29)
[2017-12-07] MEDS: IV D5/ 0.9% NACL 1,000 ML IV PRN (18:15)
--- NOTE | 2017-12-07 19:30 | NUR ---
CARRIAGE SETTER INITIAL NOTE PT RECEIVED SLEEPING IN BED BUT EASILY AROUSABLE TO NAME. ON MECH VENT WITH SETTINGS WELL TOLERATED AND SATURATING 100%. NO DISTRESS NOTED ON THE VENT. HOB ELEVATED AND ON ASPIRATION PRECAUTIONS. GT FEEDING TOLERATED WITH 50ML RESIDUAL NOTED. TELE-SB 50'S. FLOREZ CATHETER IN PLACE AND DRAINING BY GRAVITY. WILL CONTINUE TO MONITOR.
--- NOTE | 2017-12-07 20:13 | NUR ---
RECEIVED PT TRACHED ON VENT. PT IS AWAKE AND NO RESP DISTRESS. TOLERATING VENT SETTINGS. SX'D FOR MOD AMT OF THICK WESLEY SECRETIONS. VENT ALARMS SET AND AUDIBLE. TRACH SECURE, CUFF GLOVE PARTS INSPECTOR. VENT PLUGGED INTO RED OUTLET. WILL CONTINUE TO MONITOR. Addendum: 12/07/17 at 2014 by KATIA ARCEO RT Amended: Links added.
[2017-12-08] VITALS (42 sets, daily range): BP systolic 80–154; BP diastolic 34–92
--- NOTE | 2017-12-08 00:30 | NUR ---
DISH WASHER NOTE PT NOTED WITH SEMI-FORMED BOWEL MOVEMENT. ENDORSED BY AM RN TO COLLECT FOR C-DIFF IF LOOSE. KEPT CLEAN AND DRY. TX PERFORMED ORDERED. WILL MONITOR.
[2017-12-08] MEDS: NYSTATIN TOP POWDER 15 GM BOTTLE TP SCH ×2 (01:29→13:46)
[2017-12-08] MEDS: methylPREDNISolone SOD SUCC 125 MG/2ML VIAL IV SCH ×3 (01:29→18:23)
[2017-12-08] MEDS: IPRATROPIUM NEB FS 0.5 MG/2.5 ML AMPUL.NEB NEB SCH ×6 (03:36→23:15)
[2017-12-08] MEDS: ALBUTEROL HALF STRENGTH 1.25 MG/3 ML VIAL.NEB NEB SCH ×6 (03:37→23:15)
[2017-12-08 05:01] LABS: EOSINOPHILS % (AUTO) 0.1 % (0.0-6.0); HEMATOCRIT 31 % (33-45); HEMOGLOBIN 9.8 g/dL (11.5-14.8); LYMPHOCYTES # (AUTO) 0.8 /CMM (0.8-4.8); LYMPHOCYTES % (AUTO) 8.5 % (20.0-44.0); MEAN CORPUSCULAR HGB CONC 31 g/dl (31.0-36.0); MEAN CORPUSCULAR VOLUME 95 fL (82-100); MONOCYTES # (AUTO) 0.2 /CMM (0.1-1.30); NEUTROPHILS # (AUTO) 8.1 /CMM (1.8-8.9); NEUTROPHILS % (AUTO) 89.4 % (43.0-81.0); PLATELET COUNT (AUTO) 142 /CMM (150-450); RDW COEFFICIENT OF VARIATION 20.2 (11.5-15.0); RED BLOOD CELL COUNT(AUTO) 3.29 MIL/uL (4.0-5.2)
[2017-12-08] MEDS: PIPERACILLIN /TAZOBACTAM 2.25 G in IV D5W 50 ML IV SCH ×4 (05:15→23:45)
[2017-12-08 05:23] LABS: CARBON DIOXIDE 24 mmol/L (21-32); CHLORIDE 112 mmol/L (98-107); CREATININE 0.9 mg/dL (0.6-1.3); GLUCOSE 154 mg/dL (74-106); MAGNESIUM 1.9 mg/dL (1.8-2.4); POTASSIUM 4.3 mmol/L (3.5-5.1); SODIUM SERUM 145 mmol/L (136-145); UREA NITROGEN, BLOOD 42 mg/dL (7-18)
--- NOTE | 2017-12-08 06:44 | NUR ---
AVIONIC TECHNICIAN NOTE PT REMAINED STABLE DURING SHIFT. NO ACUTE DISTRESS NOTED. VENT SETTINGS WELL TOLERATED. BP REMAINS 90'S-LOW 100'S. HOB ELEVATED. AFEBRILE. ALL NEEDS ATTENDED TO PROMPTLY. KEPT CLEAN AND DRY. REPOSITIONED Q2H. SUCTIONED NEEDED. WILL ENDORSE TO NEXT SHIFT FOR CONTINUITY OF CARE.
--- NOTE | 2017-12-08 07:30 | NUR ---
RN NOTES RECEIVED PATIENT ON [facility] VENT WITH BREATHING NORMAL, EVEN AND UNLABORED. NO SOB NOTED. NO ACUTE DISTRESS NOTED. VENT SETTING REVIEWED AND VERIFIED. TOLERATED WELL. AFEBRILE. TELE MONITOR REVEALS SB, HR=52. ALAINA PICC LINE IS PATENT AND INTACT, RUNNING IVF PER ORDER. F/C IS PATENT AND INTACT, DRAINING WITH GRAVITY. KEPT CLEAN, DRY AND COMFORTABLE. ALL NEEDS ATTENDED. SAFETY MEASURE OBSERVED. CALL LIGHT WITH IN REACH. WILL CONT TO MONITOR.
--- NOTE | 2017-12-08 09:00 | NUR ---
RN NOTES RELAYED POTASSIUM RESULTS TO DR VELASQUEZ. MD IS OK TO GIVE ROUTINE SCHEDULE POTASSIUM MED PER ORDER.
[2017-12-08] MEDS: ASCORBIC ACID 500 MG TABLET PO SCH (09:20)
[2017-12-08] MEDS: MULTIVITAMINS,THERAGRAN 1 UDTAB TABLET PO SCH (09:20)
[2017-12-08] MEDS: VALPROIC ACID 250 MG/5 ML UDC GT SCH ×3 (09:20→18:23)
[2017-12-08] MEDS: NEOMY SULF/BACITRAC ZN/POLY 15 GM TUBE TP SCH (09:21)
[2017-12-08] MEDS: PROSOURCE / PROSTAT (PYXIS) 30 ML UDC GT SCH (09:27)
[2017-12-08] MEDS: POTASSIUM CHLORIDE 20 MEQ POWDER PACKET GT SCH (10:33)
[2017-12-08] MEDS: HEPARIN SODIUM, PORCINE 5000 UNITS/1 ML VIAL SQ SCH ×2 (11:13→22:32)
[2017-12-08] MEDS: PANTOPRAZOLE 40 MG VIAL IV SCH (11:15)
[2017-12-08] MEDS: JEVITY 1.2 CAL 1,000 ML BOTTLE GT PRN (13:28)
[2017-12-08] MEDS: IV D5/ 0.9% NACL 1,000 ML IV PRN (16:09)
--- NOTE | 2017-12-08 19:29 | NUR ---
RN NOTES PATIENT ENDORSED TO NEXT SHIFT IN STABLE CONDITION FOR CONTINUITY OF CARE.
--- NOTE | 2017-12-08 20:00 | NUR ---
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 SR /SB low 50's.BP marginal.With generalized edema.Both UE and LE kept elevated on pillows.GT feeding infusing no residual noted.Aspiration precaution maintained.FC to gravity drainage with yellow urine.IVF infusing to ALAINA PICC Line site intact.Turned and repositioned.Continue monitoring.
--- NOTE | 2017-12-08 20:24 | NUR ---
RECEIVED PT TRACHED ON VENT. PT IS AWAKE AND NO RESP DISTRESS. TOLERATING VENT SETTINGS. SX'D FOR MOD AMT OF THICK WESLEY SECRETIONS. VENT ALARMS SET AND AUDIBLE. TRACH SECURE, CUFF WATER LEAK REPAIRER. VENT PLUGGED INTO RED OUTLET. WILL CONTINUE TO MONITOR. Addendum: 12/08/17 at 2023 by KATIA ARCEO RT Amended: Links added.
[2017-12-09] VITALS (24 sets, daily range): BP systolic 81–114; BP diastolic 42–67
[2017-12-09] MEDS: methylPREDNISolone SOD SUCC 125 MG/2ML VIAL IV SCH ×3 (02:24→17:47)
[2017-12-09] MEDS: NYSTATIN TOP POWDER 15 GM BOTTLE TP SCH ×2 (02:24→14:31)
[2017-12-09] MEDS: IPRATROPIUM NEB FS 0.5 MG/2.5 ML AMPUL.NEB NEB SCH ×6 (03:44→23:50)
[2017-12-09] MEDS: ALBUTEROL HALF STRENGTH 1.25 MG/3 ML VIAL.NEB NEB SCH ×6 (03:44→23:50)
--- NOTE | 2017-12-09 04:00 | NUR ---
Patient resting.Remains SR/SB 50's and occasionally mid 40's.SBP still unstable.Drop down to low 80's.GT feeding tolerating well.Had 0ne BM pasty brown moderate amount.Perineal care done.Bathed and complete linens changed.PICC LINE dressing changed under aseptic technique.Sacral dressing changed per order.Turned and repositioned.No distress noted.
[2017-12-09] MEDS: IV D5/ 0.9% NACL 1,000 ML IV PRN ×2 (04:30→20:33)
[2017-12-09] MEDS: PIPERACILLIN /TAZOBACTAM 2.25 G in IV D5W 50 ML IV SCH (05:30)
--- NOTE | 2017-12-09 07:10 | NUR ---
RN INITIAL NOTES: Rec'd pt awake on bed, not in any distress, A/O x1, mouths words. On MV via trach sating at 100%. On telemonitor, SB/SR w/ PACs. Has GT on cont GTF Jevity 1.2 x 50 cc/hr infusing well, no residual noted upon checking. Has FC draining to adequate yellowish UOP. Has ALAINA PICC line w/ D5NS x 75 cc/hr infusing well, no s/sx of infection/infiltration. Provided comfort & safety measures. Bed kept low & in locked pos. Call light placed w/in reach. Will continue to monitor & attend pt needs.
--- NOTE | 2017-12-09 07:46 | NUR ---
Pt seen & examined by Dr. Archer w/ orders to change Florinef to daily. Addendum: 12/09/17 at 0957 by WILL ROUSSEAU RN made aware re: need to do med recon.
[2017-12-09] MEDS: ASCORBIC ACID 500 MG TABLET PO SCH (08:33)
[2017-12-09] MEDS: POTASSIUM CHLORIDE 20 MEQ POWDER PACKET GT SCH (08:33)
[2017-12-09] MEDS: MULTIVITAMINS,THERAGRAN 1 UDTAB TABLET PO SCH (08:33)
[2017-12-09] MEDS: VALPROIC ACID 250 MG/5 ML UDC GT SCH ×3 (08:33→17:47)
[2017-12-09] MEDS: FLUDROCORTISONE 0.1 MG TABLET PO SCH (08:34)
[2017-12-09] MEDS ORDERED: FLUDROCORTISONE 0.1 MG TABLET PO SCH (09:00)
--- NOTE | 2017-12-09 09:00 | NUR ---
Pt seen & examined by Dr. Tenorio.
[2017-12-09] MEDS: PROSOURCE / PROSTAT (PYXIS) 30 ML UDC GT SCH (09:04)
[2017-12-09] MEDS: NEOMY SULF/BACITRAC ZN/POLY 15 GM TUBE TP SCH (09:52)
[2017-12-09] MEDS: PANTOPRAZOLE 40 MG VIAL IV SCH (10:47)
--- NOTE | 2017-12-09 11:30 | NUR ---
Pt seen & examined by DOMO Luna.
--- NOTE | 2017-12-09 12:30 | NUR ---
SPORTS SPECIALIST NOTES: Pt transferred to room 109, [facility] status as ordered, via ACLS protocol accompanied by 2 RN & RT. Pt not in any distress. Trach, GT, FC kept patent & intact. ALAINA PICC line flushing well w/ no s/sx of infection/infiltration noted, dressing is clean w/ no bleeding noted. Report given to Tamiko RN. No issues identified during transfer.
--- NOTE | 2017-12-09 12:30 | NUR ---
RN NOTES RECEIVED PATIENT IN BED, A/O X1, SPONTANEOUS EYE OPENING, NO SHORTNESS OF BREATH NOTED, ON MV ON PRESCRIBED SETTINGS, SATURATION AT 100%, PLACED ON TELEMONITOR: SB AT THIS TIME HR AT 58 BPM, ALAINA PICC LINE NO SWELLING OR SIGN AND SYMPTOM OF INFECTION NOTED, WITH D5NSX 75CC/HR INFUSING WELL, GT: NO GASTRIC RESIDUAL AND PATENT ON FLUSHING, FEEDING OF JEVITY 1.2 AT 50 CC/HR. WITH FLOREZ CATHETER IN PLACE AND DRAINING WELL TO YELLOW URINE.ASPIRATION PRECAUTION AND SAFETY MEASURES PUT IN PLACE. BED LOW AND LOCKED. CALL LIGHT WITHIN REACH, WILL CONTINUE TO MONITOR AND ASSESS PATIENT CLOSELY
--- NOTE | 2017-12-09 19:40 | NUR ---
RN NOTES ENDORSED PATIENT FOR CONTINUITY OF CARE. NO ACUTE CHANGES WITHIN THE SHIFT. ALL NURSING NEEDS ATTENDED AND MET. ASPIRATION AND SAFETY MEASURES IN PLACE AT ALL TIMES. CALL LIGHT WITHIN REACH AT ALL TIMES
--- NOTE | 2017-12-09 19:50 | NUR ---
[facility] RN OPENING NOTES REPORT RECEIVED FROM LEENA RN. PATIENT A/A/O X1, NON-VERBAL & UNABLE TO MAKE NEEDS KNOWN BUT RESPONDS TO NAME & TOUCH. BREATHING EVEN & UNLABORED W/ TRACH INTACT & TOLERATING VENT SETTINGS AC 14, TV 550, FIO2 40%, PEEP 5. NO S/S OF RESPIRATORY DISTRESS. ON TELE W/ SINUS RHYTHM, SINUS CHHAYA, HR 58. RIGHT UPPER ARM PICC LINE, INTACT & PATENT W/ DRESSING CDI & IVF D5 NS INFUSING WELL @ 75 ML/HR. G-TUBE PATENT & FLUSHING WELL W/ GTF JEVITY 1.5 RUNNING @ 50 ML/HR. NO RESIDUAL NOTED @ THIS TIME. FLOREZ CATH DRAINING CLEAR, YELLOW URINE. NO S/S OF PAIN OR DISCOMFORT. SAFETY MEASURES MAINTAINED W/ BED ALARM ON & BILATERAL SIDE RAILS UP. WILL CONTINUE TO MONITOR.
--- NOTE | 2017-12-09 20:17 | NUR ---
PATIENT RECEIVED TRACHED ON MECHANICAL VENTILATION. AMBU BAG @ HOB. ALARMS ON AND AUDIBLE. TX GIVEN, NO ADVERSE REACTIONS NOTED. SX DONE, TRACH SECURED AND PATENT. SMALL THICK WHITE/YELLOW SECRETIONS NOTED. PATIENT IS AWAKE/ALERT. PULSE OX CONNECTED AND WORKING. WILL CONTINUE TO MONITOR. Addendum: 12/09/17 at 2018 by SAMUEL WALLS RT Amended: Links added.
[2017-12-10] VITALS (7 sets, daily range): BP systolic 99–118; BP diastolic 45–53
[2017-12-10] MEDS: NYSTATIN TOP POWDER 15 GM BOTTLE TP SCH ×2 (01:14→13:58)
[2017-12-10] MEDS: methylPREDNISolone SOD SUCC 125 MG/2ML VIAL IV SCH ×3 (01:14→17:11)
[2017-12-10] MEDS: ALBUTEROL HALF STRENGTH 1.25 MG/3 ML VIAL.NEB NEB SCH ×6 (03:52→22:56)
[2017-12-10] MEDS: IPRATROPIUM NEB FS 0.5 MG/2.5 ML AMPUL.NEB NEB SCH ×6 (03:52→22:56)
[2017-12-10] MEDS: JEVITY 1.2 CAL 1,000 ML BOTTLE GT PRN (04:18)
--- NOTE | 2017-12-10 07:48 | NUR ---
KAYLEY RN NOTE RECEIVED PATIENT IN BED , AWKE , OPEN BOTH EYES , NON VERBAL, WITH TRACH TO VENT SETTING ORDERED, AMBU BAG , AT HOB , ON TELE MONIOTE SR HR 60 , WITH FLOREZ CATH TO GRAVITY WITH YELLOW PALE COLOR URINE, WITH G TUBE FEEDING ORDERED, KEEP HOB ELEVATED AT ALL TIME , NO RESIDUAL NOTED PLACEMENT CHECKED OF G TUBE , RT UPPER ARM PICC LINE IN PLCE NO S\S INFECTION, ON IVF ORDERED ,BED IN LOWEST AND LOCKED POSITION , CALL LIGHT WITHIN REACH , WILL CONT TO MONITOR CLOSELY, BOTH ARMS WITH EDEMA ,KEEP ENERVATED ON PILLOW TOLERATED
[2017-12-10] MEDS: VALPROIC ACID 250 MG/5 ML UDC GT SCH ×3 (08:07→17:10)
[2017-12-10] MEDS: POTASSIUM CHLORIDE 20 MEQ POWDER PACKET GT SCH (08:07)
[2017-12-10] MEDS: MULTIVITAMINS,THERAGRAN 1 UDTAB TABLET PO SCH (08:07)
[2017-12-10] MEDS: NEOMY SULF/BACITRAC ZN/POLY 15 GM TUBE TP SCH (08:08)
[2017-12-10] MEDS: FLUDROCORTISONE 0.1 MG TABLET PO SCH (08:08)
[2017-12-10] MEDS: ASCORBIC ACID 500 MG TABLET PO SCH (08:08)
[2017-12-10] MEDS: PROSOURCE / PROSTAT (PYXIS) 30 ML UDC GT SCH (08:08)
[2017-12-10] MEDS: IV D5/ 0.9% NACL 1,000 ML IV PRN (09:54)
[2017-12-10] MEDS: PANTOPRAZOLE 40 MG VIAL IV SCH (10:10)
--- NOTE | 2017-12-10 10:11 | NUR ---
RT RECD PT TRACHED INTACT AND SECURED ON MECH VENT TRINY ORDERED SETTINGS ALARMS ON AND AUDIBLE VENT PLUGGED IN RED OUTLET BAG AND MASK AT HOB SX THICK YELLOW LARGE AMOUNT OF SECRETIONS. TX GIVEN TRINY WELL NO ADVERSE REACTION NOTED ATT WILL CONTINUE TO MONITOR
--- NOTE | 2017-12-10 10:55 | NUR ---
KAYLEY RN NOTE SEEN BY DOCTOR MICHAUD, NOTIFY BILATERAL ARMS WITH EDEMA, STATED TO HOLD FOR NOW IV FLUIDS, AND GIVE FREE WATER 200 CC Q6 HR, MONITOR FOR MAP 65, REPOSITION DONE, TRACH SUCTION DONE, WE WILL CONTINUE TO MONITOR CLOSELY.
[2017-12-10 14:11] LABS: ABG BASE EXCESS -3.8 mmol/L; ABG OXYGEN SATURATION 96.3 % (92.0-98.5); ABG PCO2 39.5 mmHg (35.0-45.0); ABG PH 7.352 (7.350-7.450); ABG PO2 97.8 mmHg (75.0-100.0); COHb 0.2 % (0.5-1.5); MetHb 0.7 % (0.0-1.5); O2Hb 95.4 % (94.0-97.0); PEEP,BG 5 cm H2O; SITE, ABG Left Radial; VT, ABG 550 mL
[2017-12-10 14:12] LABS: ABG BASE EXCESS -1.9 mmol/L; ABG OXYGEN SATURATION 97.5 % (92.0-98.5); ABG PCO2 47.6 mmHg (35.0-45.0); ABG PH 7.325 (7.350-7.450); ABG PO2 131.9 mmHg (75.0-100.0); AaDO2 98.6 mmHg; COHb 0.2 % (0.5-1.5); MetHb 0.4 % (0.0-1.5); O2Hb 96.9 % (94.0-97.0); PEEP,BG 5 cm H2O; SITE, ABG Left Radial; VT, ABG 550 mL
--- NOTE | 2017-12-10 14:15 | NUR ---
KAYLEY RN NOTES MAP IS 82, HOLDING IV FLUIDS PER MD ORDER.
--- NOTE | 2017-12-10 15:59 | NUR ---
KAYLEY RN NOTES MAP 83, WILL HOLD IV FLUIDS PER [facility] ORDER.
--- NOTE | 2017-12-10 18:08 | NUR ---
KAYLEY RN NOTE ALL NEEDS ATTENDED ,CONT ON VENT SETTING ORDERED .TRACH SUCTION DONE ORDERED KEEP HOB ELEVATED AT ALL TIME, WILL CONT TO MONITOR CLOSELY
--- NOTE | 2017-12-10 20:00 | NUR ---
RN INITIAL NOTES RECEIVED PT IN BED. PATIENT A/A/O X1, NON-VERBAL & UNABLE TO MAKE NEEDS KNOWN BUT RESPONDS TO NAME & TOUCH. BREATHING EVEN & UNLABORED W/ TRACH INTACT & TOLERATING VENT SETTINGS AC 14, TV 550, FIO2 40%, PEEP 5. NO S/S OF RESPIRATORY DISTRESS. ON TELE W/ SINUS RHYTHM, SINUS CHHAYA, HR 58/60. RIGHT UPPER ARM PICC LINE, INTACT & PATENT W/ DRESSING CDI & IVF D5 NS INFUSING WELL @ 75 ML/HR. G-TUBE PATENT & FLUSHING WELL W/ GTF JEVITY 1.5 RUNNING @ 50 ML/HR. NO RESIDUAL NOTED @ THIS TIME. FLOREZ CATH DRAINING CLEAR, YELLOW URINE. NO S/S OF PAIN OR DISCOMFORT. SAFETY MEASURES MAINTAINED W/ BED ALARM ON. CALL LIGHT WITH IN REACH. WILL CONT TO MONITOR.
[2017-12-11] VITALS: BP 110/50
[2017-12-11] MEDS: NYSTATIN TOP POWDER 15 GM BOTTLE TP SCH ×2 (01:10→14:04)
[2017-12-11 04:00] VITALS: BP 105/47
[2017-12-11] MEDS: IPRATROPIUM NEB FS 0.5 MG/2.5 ML AMPUL.NEB NEB SCH ×6 (04:22→22:57)
[2017-12-11] MEDS: ALBUTEROL HALF STRENGTH 1.25 MG/3 ML VIAL.NEB NEB SCH ×6 (04:22→22:57)
--- NOTE | 2017-12-11 06:11 | NUR ---
RN CLOSING NOTES NO ACUTE CHANGES WITHIN THE SHIFT. ALL NURSING NEEDS ATTENDED AND MET. ASPIRATION AND SAFETY MEASURES IN PLACE AT ALL TIMES. CALL LIGHT WITHIN REACH AT ALL TIMES. WILL ENDORSE FOR SUJATA
[2017-12-11 06:25] LABS: BASOPHILS % (AUTO) 0.1 % (0.0-2.0); HEMATOCRIT 27 % (33-45); HEMOGLOBIN 8.4 g/dL (11.5-14.8); LYMPHOCYTES # (AUTO) 1.2 /CMM (0.8-4.8); LYMPHOCYTES % (AUTO) 11.7 % (20.0-44.0); MEAN CORPUSCULAR HGB CONC 32 g/dl (31.0-36.0); MEAN CORPUSCULAR VOLUME 98 fL (82-100); MONOCYTES # (AUTO) 0.3 /CMM (0.1-1.30); MONOCYTES % (AUTO) 3.2 % (2.0-12.0); NEUTROPHILS # (AUTO) 8.4 /CMM (1.8-8.9); PLATELET COUNT (AUTO) 123 /CMM (150-450); RED BLOOD CELL COUNT(AUTO) 2.72 MIL/uL (4.0-5.2); WHITE BLOOD COUNT (AUTO) 9.9 K/uL (4.3-11.0)
[2017-12-11 06:32] LABS: CALCIUM, SERUM 8.4 mg/dL (8.5-10.1); CARBON DIOXIDE 26 mmol/L (21-32); CHLORIDE 115 mmol/L (98-107); CREATININE 0.8 mg/dL (0.6-1.3); GLUCOSE 105 mg/dL (74-106); PHOSPHORUS 3.3 mg/dL (2.5-4.9); POTASSIUM 5.1 mmol/L (3.5-5.1); SODIUM SERUM 146 mmol/L (136-145); UREA NITROGEN, BLOOD 46 mg/dL (7-18)
[2017-12-11 08:00] VITALS: BP 115/51
--- NOTE | 2017-12-11 08:42 | NUR ---
RT Female pt received trachd and on [facility] vent w ordered settings. Alarms are on and audible w ambubag at hob and vent plugged into red outlet. Trach is patent and secure. Manager Risk Management cuff pressure noted. Moderate amounts of thick white/yellow secretions sx'd. No resp distress noted. Will continue to monitor. Addendum: 12/11/17 at 1033 by SADAF COSME RT Amended: Links added.
[2017-12-11] MEDS: MULTIVITAMINS,THERAGRAN 1 UDTAB TABLET PO SCH (09:08)
[2017-12-11] MEDS: FLUDROCORTISONE 0.1 MG TABLET PO SCH (09:08)
[2017-12-11] MEDS: VALPROIC ACID 250 MG/5 ML UDC GT SCH ×3 (09:08→16:54)
[2017-12-11] MEDS: ASCORBIC ACID 500 MG TABLET PO SCH (09:08)
[2017-12-11] MEDS: methylPREDNISolone SOD SUCC 125 MG/2ML VIAL IV SCH (09:09)
[2017-12-11] MEDS: PROSOURCE / PROSTAT (PYXIS) 30 ML UDC GT SCH (09:09)
[2017-12-11] MEDS: NEOMY SULF/BACITRAC ZN/POLY 15 GM TUBE TP SCH (09:12)
[2017-12-11 12:00] VITALS: BP 120/50
[2017-12-11] MEDS: PANTOPRAZOLE 40 MG VIAL IV SCH (12:32)
[2017-12-11] MEDS: JEVITY 1.2 CAL 1,000 ML BOTTLE GT PRN (12:41)
[2017-12-11 16:00] VITALS: BP 112/47
[2017-12-11 20:00] VITALS: BP 112/43
--- NOTE | 2017-12-11 20:00 | NUR ---
RN INITIAL NOTES RECEIVED PT IN BED. PATIENT A&O X1, NON-VERBAL & UNABLE TO MAKE NEEDS KNOWN BUT RESPONDS TO NAME & TOUCH. BREATHING EVEN & UNLABORED W/ TRACH INTACT & TOLERATING VENT SETTINGS AC 14, TV 550, FIO2 40%, PEEP 5. NO S/S OF RESPIRATORY DISTRESS. ON TELE W/ SINUS RHYTHM, SINUS CHHAYA, HR 58/60. RIGHT UPPER ARM PICC LINE, INTACT & PATENT W/ DRESSING CDI S/L. G-TUBE PATENT & FLUSHING WELL W/ GTF JEVITY 1.5 RUNNING @ 50 ML/HR. NO RESIDUAL NOTED @ THIS TIME. FLOREZ CATH DRAINING CLEAR, YELLOW URINE. NO S/S OF PAIN OR DISCOMFORT. SAFETY MEASURES MAINTAINED W/ BED ALARM ON. CALL LIGHT WITH IN REACH. WILL CONT TO MONITOR.
--- NOTE | 2017-12-11 21:03 | NUR ---
PT GUS GARCIA'D ON MECHANICAL VENT WITH CHARTED SETTINGS. HHN TX GIVEN AND NO ADVERSE REACTION NOTED. SX DONE. PT TRACH PATENT AND SECURE. AMBU BAG AT BEDSIDE. VENT PLUGGED INTO RED OUTLET. ALARMS ARE SET AND AUDIBLE. WILL CONTINUE TO MONITOR. Addendum: 12/11/17 at 2104 by SHELBY TURPIN RT Amended: Links added.
[2017-12-12] VITALS: BP 96/51
[2017-12-12] MEDS: NYSTATIN TOP POWDER 15 GM BOTTLE TP SCH (01:02)
[2017-12-12] MEDS: IPRATROPIUM NEB FS 0.5 MG/2.5 ML AMPUL.NEB NEB SCH ×3 (03:05→11:42)
[2017-12-12] MEDS: ALBUTEROL HALF STRENGTH 1.25 MG/3 ML VIAL.NEB NEB SCH ×3 (03:05→11:42)
[2017-12-12 04:00] VITALS: BP 100/42
--- NOTE | 2017-12-12 06:27 | NUR ---
RN CLOSING NOTES NO ACUTE CHANGES WITHIN THE SHIFT.ALL DUE MEDS GIVEN. ALL NURSING NEEDS ATTENDED AND MET. ASPIRATION AND SAFETY MEASURES IN PLACE AT ALL TIMES. CALL LIGHT WITHIN REACH AT ALL TIMES. WILL ENDORSE FOR SUJATA
--- NOTE | 2017-12-12 07:05 | NUR ---
K[facility] RN OPENING NOTES RECEIVED PT IN BED. PATIENT A&O X1, NON-VERBAL & UNABLE TO MAKE NEEDS KNOWN BUT RESPONDS TO NAME & TOUCH. BREATHING EVEN & UNLABORED W/ TRACH INTACT & TOLERATING VENT SETTINGS .NO S/S OF RESPIRATORY DISTRESS. ON TELE W/ SINUS RHYTHM 69. RIGHT UPPER ARM PICC LINE, INTACT & PATENT W/ DRESSING CDI . G-TUBE PATENT & FLUSHING WELL W/ GTF JEVITY 1.5 RUNNING @ 50 ML/HR. FLOREZ CATH DRAINING CLEAR, YELLOW URINE. NO S/S OF PAIN OR DISCOMFORT. SAFETY MEASURES MAINTAINED W/ BED ALARM ON. CALL LIGHT WITH IN REACH.BED IS LOCKED AND IN LOW POSITION. WILL CONTINUE TO MONITOR.
[2017-12-12 08:00] VITALS: BP 98/45
[2017-12-12] MEDS: PROSOURCE / PROSTAT (PYXIS) 30 ML UDC GT SCH (08:34)
[2017-12-12] MEDS: VALPROIC ACID 250 MG/5 ML UDC GT SCH ×2 (08:34→12:17)
[2017-12-12] MEDS: ASCORBIC ACID 500 MG TABLET PO SCH (08:35)
[2017-12-12] MEDS: FLUDROCORTISONE 0.1 MG TABLET PO SCH (08:35)
[2017-12-12] MEDS: MULTIVITAMINS,THERAGRAN 1 UDTAB TABLET PO SCH (08:35)
[2017-12-12] MEDS: NEOMY SULF/BACITRAC ZN/POLY 15 GM TUBE TP SCH (08:36)
[2017-12-12] MEDS ORDERED: methylPREDNISolone SOD SUCC 125 MG/2ML VIAL IV SCH (09:00)
[2017-12-12 10:00] VITALS: BP 98/45
[2017-12-12] MEDS ORDERED: predniSONE 20 MG TABLET PO SCH (11:00)
--- NOTE | 2017-12-12 11:00 | NUR ---
K[facility] RN NOTES SEEN BY ,UPDATED PATIENT CONDITION AND ABOUT BLOOD PRESSURE.GOT NEW ORDER FOR DISCHARGE.ROOFER APPLICATOR AWARE.GOING BACK TO [facility] SUPERVISOR BIT AND SHANK DEPARTMENT TIME 1300.CALL MADE TO REHAB SPOKE TO DONTRELL ROY GIVEN REPORT.CALL MADE TO SISTER ,SPOKE TO DEANDRA.MADE AWARE ABOUT DISCHARGE.WILL CONTINUE TO MONITOR.
[2017-12-12] MEDS: PANTOPRAZOLE 40 MG VIAL IV SCH (11:45)
[2017-12-12 12:00] VITALS: BP_SYST 106; BP_SYST 90; BP_DIAS 39; BP_DIAS 51
--- NOTE | 2017-12-12 14:45 | NUR ---
[facility]LEY RN NOTES PATIENT PICKED UP BY EMT IN STABLE CONDITION.NO SOB NO DISTRESS NOTED.NO BELONGINGS.DISCHARGE PAPER WORK AND REPORT GIVEN TO EMT AND RT.
[2017-12-31] MEDS ORDERED: MULT-447 GT (13:22)
[2017-12-31] MEDS ORDERED: OMEP20CA10 GT (13:22)
[2017-12-31] MEDS ORDERED: VIT500LI GT (13:22)
[2017-12-31] MEDS ORDERED: ZINC220C8 GT (13:22)
[2017-12-31] MEDS ORDERED: NUTR1PAC14 GT (13:22)
[2017-12-31] MEDS ORDERED: CHLO473M5 MM (13:47)
[2017-12-31] MEDS ORDERED: IPRA0.2S9 IH (13:47)
[2017-12-31] MEDS ORDERED: CHOL100044 GT (13:47)
[2017-12-31] MEDS ORDERED: IPRA3AMP23 IH (13:47)
== END 2017-12-12 14:30 | DRG 130 ==
LOC: ER 14:12 → TELE1 18:32 → TELE-TD 19:28 → ICU 12-02 21:23 → TELE-TD 12-09 12:36
PROVIDERS: ADMIT Internal Medicine; ATTEND Internal Medicine
PROC: 5A1955Z Respiratory Ventilation, Greater than 96 Consecutive Hours (ICD-10-PCS; principal; 2017-12-01)
PROC: 02HV33Z Insertion of Infusion Device into Superior Vena Cava, Percutaneous Approach (ICD-10-PCS; principal; 2017-12-01)
PROC: B548ZZA Ultrasonography of Superior Vena Cava, Guidance (ICD-10-PCS; principal; 2017-12-01)
PROC: 30233N1 Transfusion of Nonautologous Red Blood Cells into Peripheral Vein, Percutaneous Approach (ICD-10-PCS; 2017-12-05)
DX: J95.851 Ventilator associated pneumonia (principal); N17.0 Acute kidney failure with tubular necrosis; R65.21 Severe sepsis with septic shock; J15.6 Pneumonia due to other Gram-negative bacteria; A41.9 Sepsis, unspecified organism; J96.21 Acute and chronic respiratory failure with hypoxia; E46 Unspecified protein-calorie malnutrition; L89.150 Pressure ulcer of sacral region, unstageable; G93.1 Anoxic brain damage, not elsewhere classified; J96.01 Acute respiratory failure with hypoxia; Z99.11 Dependence on respirator [ventilator] status; Z93.0 Tracheostomy status; I11.0 Hypertensive heart disease with heart failure; J44.1 Chronic obstructive pulmonary disease with (acute) exacerbation; J44.0 Chronic obstructive pulmonary disease with (acute) lower respiratory infection; E87.5 Hyperkalemia; K92.2 Gastrointestinal hemorrhage, unspecified; D63.8 Anemia in other chronic diseases classified elsewhere; D62 Acute posthemorrhagic anemia; K21.9 Gastro-esophageal reflux disease without esophagitis; E66.01 Morbid (severe) obesity due to excess calories; E78.5 Hyperlipidemia, unspecified; E86.0 Dehydration; F20.9 Schizophrenia, unspecified; J96.22 Acute and chronic respiratory failure with hypercapnia; Z66 Do not resuscitate; Z86.73 Personal history of transient ischemic attack (TIA), and cerebral infarction without residual deficits; Z87.891 Personal history of nicotine dependence; Z93.1 Gastrostomy status; Z87.440 Personal history of urinary (tract) infections; N39.0 Urinary tract infection, site not specified; L30.4 Erythema intertrigo; Y84.8 Other medical procedures as the cause of abnormal reaction of the patient, or of later complication, without mention of misadventure at the time of the procedure; Y82.8 Other medical devices associated with adverse incidents; Y92.129 Unspecified place in nursing home as the place of occurrence of the external cause; D50.0 Iron deficiency anemia secondary to blood loss (chronic); E87.6 Hypokalemia; F03.90 Unspecified dementia, unspecified severity, without behavioral disturbance, psychotic disturbance, mood disturbance, and anxiety; B96.89 Other specified bacterial agents as the cause of diseases classified elsewhere; L89.320 Pressure ulcer of left buttock, unstageable; L89.310 Pressure ulcer of right buttock, unstageable; S40.022A Contusion of left upper arm, initial encounter; S40.021A Contusion of right upper arm, initial encounter; Z68.35 Body mass index [BMI] 35.0-35.9, adult; Z87.01 Personal history of pneumonia (recurrent); I50.9 Heart failure, unspecified; Z86.14 Personal history of Methicillin resistant Staphylococcus aureus infection
CPT/HCPCS: 31720; 36415; 36569; 36600; 71045-TC; 80048-TC; 80053-TC; 80061-TC; 80076-TC; 80202-TC; 81000-TC; 82040-TC; 82272-TC; 82803-TC; 82962-TC; 83605-TC; 83735-TC; 84100-TC; 84443-TC; 84484-TC; 85025-TC; 85730-TC; 86850-TC; 86921-TC; 87040-TC; 87070-TC; 87081-TC; 87086-TC; 87186-TC; 87400; 93971-TC; 94003-TC; 94760-TC; 94762-TC; A4217; A4606; A6253; A6403; C1751; C9113; G0378; J0692; J1644; J2060; J2543; J2930; J3370; J3490; J7030; J7040; J7042; J7050; J7060; P9016-BL; Z7610

== ENCOUNTER 2018-02-23 09:06 | Inpatient (IN) | payer OTHER, MEDICARE ==
[2018-02-23] VITALS (27 sets, daily range): BP systolic 79–156; BP diastolic 39–103
[~2018-02-23] VITALS: Ht 165.1 cm; Wt 92.1 kg
[~2018-02-23 09:06] MED LIST changes: +ACET160S GT; +AMIN30LI2 GT; +CHLO473M5 MM; +CLON0.1T GT; +CRAN3875 GT; -FLUD0.1T GT; +HYDR-4384 GT; +IPRA0.2S9 IH; +IPRA3AMP23 IH; +MERO1VIA3 IV; +MICA100V IV; +MULT-447 GT; +OMEP20CA10 GT; +RXVAN XX; +VIT500LI GT; +ZINC220C8 GT
[2018-02-23 09:28] LABS: BASOPHILS # (AUTO) 0.2 /CMM (0.0-0.2); BASOPHILS % (AUTO) 0.9 % (0.0-2.0); EOSINOPHILS % (AUTO) 0.8 % (0.0-6.0); HEMATOCRIT 31 % (33-45); HEMOGLOBIN 9.4 g/dL (11.5-14.8); LYMPHOCYTES # (AUTO) 4.9 /CMM (0.8-4.8); LYMPHOCYTES % (AUTO) 24.4 % (20.0-44.0); MEAN CORPUSCULAR HGB CONC 31 g/dl (31.0-36.0); MEAN CORPUSCULAR VOLUME 93 fL (82-100); MONOCYTES # (AUTO) 1.6 /CMM (0.1-1.30); NEUTROPHILS # (AUTO) 13.4 /CMM (1.8-8.9); NEUTROPHILS % (AUTO) 65.9 % (43.0-81.0); PLATELET COUNT (AUTO) 257 /CMM (150-450); RED BLOOD CELL COUNT(AUTO) 3.28 MIL/uL (4.0-5.2); WHITE BLOOD COUNT (AUTO) 20.3 K/uL (4.3-11.0)
[2018-02-23] MEDS ORDERED: VANCOMYCIN 1 GM in IV D5W 250 ML IV ONE (09:30)
[2018-02-23] MEDS ORDERED: IV NS 0.9% 1,000 ML BAG IV ONE (09:30)
[2018-02-23 09:41] LABS: CHLORIDE 98 mmol/L (98-107); CREATININE 0.6 mg/dL (0.6-1.3); GLUCOSE 118 mg/dL (74-106); POTASSIUM 5.8 mmol/L (3.5-5.1); SODIUM SERUM 135 mmol/L (136-145); UREA NITROGEN, BLOOD 37 mg/dL (7-18)
[2018-02-23 09:43] LABS: CARBON DIOXIDE 40 mmol/L (21-32)
[2018-02-23] MEDS: AZTREONAM 2 G in IV NS 0.9% 100 ML IV ONE ×2 (09:47→09:58)
[2018-02-23 09:58] LABS: ALANINE AMINOTRANSFERASE 12 U/L (12-78); ALBUMIN 1.7 g/dL (3.4-5.0); ALKALINE PHOSPHATASE 226 U/L (46-116); ASPARTATE AMINOTRANSFERASE 24 U/L (15-37); B-TYPE NATRIURETIC PEPTIDE 17447 PG/ML (0-125); BILIRUBIN,DIRECT 0.1 mg/dL (0.0-0.2); BILIRUBIN,TOTAL 0.3 mg/dL (0.2-1.0); TOTAL PROTEIN, SERUM 7.4 g/dL (6.4-8.2)
[2018-02-23] MEDS ORDERED: DILTIAZEM HCL IV 125 MG in IV D5W 100 ML IV ONE (10:00)
[2018-02-23] MEDS ORDERED: DILTIAZEM HCL 25 MG IV IVP ONE (10:00)
[2018-02-23] MEDS ORDERED: IV NS 0.9% 500 ML BAG IV ONE (10:00)
[2018-02-23] MEDS ORDERED: DILTIAZEM HCL 25 MG IV ONE (10:06)
[2018-02-23 10:08] LABS: LYMPHOCYTES % (MANUAL) 22 % (16-48); MONOCYTES % (MANUAL) 8 % (0-11.0); NEUTROPHILS % (MANUAL) 70 (42-76)
[2018-02-23] MEDS ORDERED: CT SWABBABLE VALVE TRANS SET 1 EA INFUS.SET MC ONE (10:20)
[2018-02-23] MEDS ORDERED: IOHEXOL-350 100 ML VIAL IV ONE (10:20)
[2018-02-23 10:47] LABS: ABG BASE EXCESS 11.3 mmol/L; ABG OXYGEN SATURATION 99.1 % (92.0-98.5); ABG PCO2 81.7 mmHg (35.0-45.0); ABG PH 7.306 (7.350-7.450); ABG PO2 247.1 mmHg (75.0-100.0); COHb 0.6 % (0.5-1.5); MetHb 0.6 % (0.0-1.5); O2Hb 97.9 % (94.0-97.0); PEEP,BG 5 cm H2O; SITE, ABG Left Radial; VENT MODE, BG A/C; VT, ABG 550 mL
[2018-02-23] MEDS ORDERED: TRAM50TA2 GT (11:23)
[2018-02-23] MEDS ORDERED: NUTR150016 GT (11:23)
[2018-02-23] MEDS ORDERED: DOCU50LI GT (11:23)
[2018-02-23] MEDS ORDERED: MAG HYDROX/AL HYDROX/SIMETH 30 ML UDC PO PRN (11:30)
[2018-02-23] MEDS ORDERED: Z GUARD REMEDY 2 OZ OINT TP PRN (11:30)
[2018-02-23] MEDS ORDERED: MAGNESIUM HYDROXIDE 30 ML UDC PO PRN (11:30)
[2018-02-23] MEDS ORDERED: ACETAMINOPHEN 325 MG TABLET PO PRN (11:30)
[2018-02-23] MEDS ORDERED: ONDANSETRON HCL/PF 4 MG/2 ML VIAL IVP PRN (11:30)
[2018-02-23 11:41] LABS: APPEARANCE,URINE Turbid (CLEAR); BILIRUBIN,URINE Negative (NEGATIVE); BLOOD, URINE Trace-lysed Ery/uL (NEGATIVE); COLOR,URINE Yellow (YELLOW); KETONES,URINE Negative (NEGATIVE); LEUKOCYTE ESTERASE ,URINE Large (NEGATIVE); NITRITE, URINE Negative (NEGATIVE); PH,URINE 8.5 (5.0-8.0); PROTEIN,URINE 100 mg/dl (NEGATIVE); UGLUCOSE Negative (NEGATIVE); UROBILINOGEN,URINE 0.2 EU/dL (0.2)
[2018-02-23 11:50] LABS: BACTERIA,URINE Many /HPF (None Seen); RBC,URINE 0-2 /HPF (0-2); SQUAMOUS EPITHELIAL CELL,UR Few /HPF (None Seen); WBC,URINE TOO NUMEROUS TO COUN /HPF (0-3)
[2018-02-23] MEDS: IPRATROPIUM NEB FS 0.5 MG/2.5 ML AMPUL.NEB NEB SCH ×3 (15:30→23:06)
[2018-02-23] MEDS: ALBUTEROL FS 2.5 MG/3 ML VIAL.NEB NEB SCH ×3 (15:30→23:06)
[2018-02-23] MEDS ORDERED: AMIODARONE 150 MG in IV D5W 100 ML IV ONE (16:00)
[2018-02-23] MEDS ORDERED: AMIODARONE 900 MG in IV D5W 482 ML IV PRN (16:00)
[2018-02-23] MEDS: methylPREDNISolone SOD SUCC 125 MG/2ML VIAL IV SCH ×2 (16:03→22:15)
[2018-02-23] MEDS ORDERED: FEE PK DOSING 1 MIN EA MC ONE (16:26)
[2018-02-23] MEDS: AZTREONAM 1 G in IV NS 0.9% 100 ML IV SCH (17:57)
[2018-02-24] VITALS (59 sets, daily range): BP systolic 84–169; BP diastolic 37–88
[2018-02-24] MEDS: AZTREONAM 1 G in IV NS 0.9% 100 ML IV SCH ×3 (02:00→17:52)
[2018-02-24] MEDS: IPRATROPIUM NEB FS 0.5 MG/2.5 ML AMPUL.NEB NEB SCH ×6 (02:59→23:08)
[2018-02-24] MEDS: ALBUTEROL FS 2.5 MG/3 ML VIAL.NEB NEB SCH ×2 (02:59→07:37)
[2018-02-24 04:43] LABS: BASOPHILS % (AUTO) 0.1 % (0.0-2.0); HEMATOCRIT 24 % (33-45); HEMOGLOBIN 7.5 g/dL (11.5-14.8); LYMPHOCYTES # (AUTO) 0.4 /CMM (0.8-4.8); MEAN CORPUSCULAR HGB CONC 32 g/dl (31.0-36.0); MEAN CORPUSCULAR VOLUME 91 fL (82-100); MONOCYTES # (AUTO) 0.1 /CMM (0.1-1.30); MONOCYTES % (AUTO) 0.9 % (2.0-12.0); NEUTROPHILS # (AUTO) 6.7 /CMM (1.8-8.9); PLATELET COUNT (AUTO) 199 /CMM (150-450); RED BLOOD CELL COUNT(AUTO) 2.58 MIL/uL (4.0-5.2); WHITE BLOOD COUNT (AUTO) 7.3 K/uL (4.3-11.0)
[2018-02-24 04:57] LABS: CALCIUM, SERUM 8.9 mg/dL (8.5-10.1); CARBON DIOXIDE 35 mmol/L (21-32); CHLORIDE 100 mmol/L (98-107); CREATININE 0.8 mg/dL (0.6-1.3); GLUCOSE 110 mg/dL (74-106); MAGNESIUM 1.9 mg/dL (1.8-2.4); PHOSPHORUS 2.9 mg/dL (2.5-4.9); POTASSIUM 5.1 mmol/L (3.5-5.1); SODIUM SERUM 138 mmol/L (136-145); UREA NITROGEN, BLOOD 37 mg/dL (7-18)
[2018-02-24] MEDS: methylPREDNISolone SOD SUCC 125 MG/2ML VIAL IV SCH ×3 (07:16→20:55)
[2018-02-24] MEDS ORDERED: IV NS 0.9% 1,000 ML BAG IV PRN (09:00)
[2018-02-24] MEDS ORDERED: IV NS 0.9% 1,000 ML BAG IV ONE (09:00)
[2018-02-24 09:12] LABS: ABG BASE EXCESS 13.2 mmol/L; ABG OXYGEN SATURATION 94.7 % (92.0-98.5); ABG PCO2 41.6 mmHg (35.0-45.0); ABG PH 7.562 (7.350-7.450); ABG PO2 67.3 mmHg (75.0-100.0); AaDO2 170.1 mmHg; COHb 1.3 % (0.5-1.5); MetHb 0.6 % (0.0-1.5); O2Hb 92.9 % (94.0-97.0); PEEP,BG 5 cm H2O; SITE, ABG Left Radial; VT, ABG 600 mL
[2018-02-24] MEDS ORDERED: ALBUTEROL FS 2.5 MG/3 ML VIAL.NEB NEB PRN (10:00)
[2018-02-24] MEDS: HYDROCODONE/APAP 5/325MG 1 EACH TABLET PO PRN (10:19)
[2018-02-24] MEDS ORDERED: VANCOMYCIN 1 GM in IV D5W 250 ML IV SCH (11:00)
[2018-02-24] MEDS: ALBUMIN 25% 25 GM in PREMIX 1 EA IV SCH ×2 (11:47→18:55)
[2018-02-24] MEDS: ENOXAPARIN SODIUM 40 MG/0.4 ML DISP.SYRIN SQ SCH (12:30)
[2018-02-24] MEDS: IV NS 0.9% 1,000 ML IV PRN ×2 (13:05→20:56)
[2018-02-24] MEDS: LORAZEPAM INJ 2 MG/ML VIAL IV PRN (14:28)
[2018-02-24] MEDS: LACTOBACILLUS RHAMNOSUS GG 1 EACH CAP.SPRINK GT SCH (17:51)
[2018-02-24] MEDS ORDERED: NYSTATIN CREAM 15 GM TUBE TP SCH (18:30)
[2018-02-24] MEDS: NYSTATIN CREAM 15 GM TUBE TP SCH (20:01)
[2018-02-24] MEDS: JEVITY 1.2 CAL 1,000 ML BOTTLE GT PRN (20:01)
[2018-02-24] MEDS: AMIODARONE HCL 200 MG TABLET GT SCH (20:57)
[2018-02-25] VITALS (49 sets, daily range): BP systolic 97–147; BP diastolic 50–113
[2018-02-25] MEDS: AZTREONAM 1 G in IV NS 0.9% 100 ML IV SCH ×3 (02:00→17:05)
[2018-02-25] MEDS: ALBUMIN 25% 25 GM in PREMIX 1 EA IV SCH (03:00)
[2018-02-25] MEDS: LORAZEPAM INJ 2 MG/ML VIAL IV PRN (03:03)
[2018-02-25] MEDS: IPRATROPIUM NEB FS 0.5 MG/2.5 ML AMPUL.NEB NEB SCH ×6 (03:23→23:06)
[2018-02-25 04:15] LABS: BASOPHILS % (AUTO) 0.1 % (0.0-2.0); HEMATOCRIT 27 % (33-45); HEMOGLOBIN 8.7 g/dL (11.5-14.8); LYMPHOCYTES # (AUTO) 0.8 /CMM (0.8-4.8); LYMPHOCYTES % (AUTO) 12.3 % (20.0-44.0); MEAN CORPUSCULAR HGB CONC 32 g/dl (31.0-36.0); MEAN CORPUSCULAR VOLUME 92 fL (82-100); MONOCYTES # (AUTO) 0.2 /CMM (0.1-1.30); MONOCYTES % (AUTO) 2.8 % (2.0-12.0); NEUTROPHILS # (AUTO) 5.3 /CMM (1.8-8.9); NEUTROPHILS % (AUTO) 84.8 % (43.0-81.0); PLATELET COUNT (AUTO) 273 /CMM (150-450); RED BLOOD CELL COUNT(AUTO) 2.97 MIL/uL (4.0-5.2); WHITE BLOOD COUNT (AUTO) 6.3 K/uL (4.3-11.0)
[2018-02-25 04:33] LABS: CALCIUM, SERUM 9.4 mg/dL (8.5-10.1); CARBON DIOXIDE 31 mmol/L (21-32); CHLORIDE 100 mmol/L (98-107); GLUCOSE 120 mg/dL (74-106); MAGNESIUM 2.1 mg/dL (1.8-2.4); POTASSIUM 4.5 mmol/L (3.5-5.1); SODIUM SERUM 138 mmol/L (136-145)
[2018-02-25] MEDS: methylPREDNISolone SOD SUCC 125 MG/2ML VIAL IV SCH ×3 (05:00→21:10)
[2018-02-25 05:13] LABS: UREA NITROGEN, BLOOD 46 mg/dL (7-18)
[2018-02-25] MEDS: IV NS 0.9% 1,000 ML IV PRN ×2 (06:46→17:42)
[2018-02-25] MEDS: ASCORBIC ACID 500 MG TABLET PO SCH (08:16)
[2018-02-25] MEDS: LACTOBACILLUS RHAMNOSUS GG 1 EACH CAP.SPRINK GT SCH ×2 (08:16→17:05)
[2018-02-25] MEDS: ENOXAPARIN SODIUM 40 MG/0.4 ML DISP.SYRIN SQ SCH (08:16)
[2018-02-25] MEDS: AMIODARONE HCL 200 MG TABLET GT SCH ×2 (08:17→21:14)
[2018-02-25] MEDS: MULTIVITAMINS,THERAGRAN 1 UDTAB TABLET PO SCH (08:17)
[2018-02-25] MEDS: NYSTATIN CREAM 15 GM TUBE TP SCH ×2 (08:18→20:26)
[2018-02-25] MEDS: VANCOMYCIN 0.75 GM in IV D5W 250 ML IV SCH (11:56)
[2018-02-25] MEDS: METOPROLOL TARTRATE 25 MG TABLET GT SCH (21:00)
[2018-02-25] MEDS: JEVITY 1.2 CAL 1,000 ML BOTTLE GT PRN (21:13)
[2018-02-25] MEDS: HYDROCODONE/APAP 5/325MG 1 EACH TABLET PO PRN (22:07)
[2018-02-26] VITALS (31 sets, daily range): BP systolic 98–143; BP diastolic 56–90
[2018-02-26] MEDS: IV NS 0.9% 1,000 ML IV PRN ×2 (02:02→12:51)
[2018-02-26] MEDS: AZTREONAM 1 G in IV NS 0.9% 100 ML IV SCH ×3 (02:02→17:00)
[2018-02-26] MEDS: LORAZEPAM INJ 2 MG/ML VIAL IV PRN (02:10)
[2018-02-26] MEDS: IPRATROPIUM NEB FS 0.5 MG/2.5 ML AMPUL.NEB NEB SCH ×6 (03:35→23:47)
[2018-02-26 04:30] LABS: BASOPHILS % (AUTO) 0.1 % (0.0-2.0); HEMATOCRIT 24 % (33-45); HEMOGLOBIN 7.7 g/dL (11.5-14.8); LYMPHOCYTES # (AUTO) 0.3 /CMM (0.8-4.8); LYMPHOCYTES % (AUTO) 7.2 % (20.0-44.0); MEAN CORPUSCULAR HGB CONC 32 g/dl (31.0-36.0); MEAN CORPUSCULAR VOLUME 93 fL (82-100); MONOCYTES # (AUTO) 0.1 /CMM (0.1-1.30); MONOCYTES % (AUTO) 3.1 % (2.0-12.0); NEUTROPHILS % (AUTO) 89.6 % (43.0-81.0); PLATELET COUNT (AUTO) 227 /CMM (150-450); RED BLOOD CELL COUNT(AUTO) 2.63 MIL/uL (4.0-5.2); WHITE BLOOD COUNT (AUTO) 4.5 K/uL (4.3-11.0)
[2018-02-26 04:43] LABS: CALCIUM, SERUM 8.4 mg/dL (8.5-10.1); CARBON DIOXIDE 33 mmol/L (21-32); CHLORIDE 102 mmol/L (98-107); CREATININE 1.1 mg/dL (0.6-1.3); GLUCOSE 153 mg/dL (74-106); MAGNESIUM 1.9 mg/dL (1.8-2.4); PHOSPHORUS 4.2 mg/dL (2.5-4.9); POTASSIUM 4.1 mmol/L (3.5-5.1); SODIUM SERUM 139 mmol/L (136-145); UREA NITROGEN, BLOOD 53 mg/dL (7-18)
[2018-02-26] MEDS: methylPREDNISolone SOD SUCC 125 MG/2ML VIAL IV SCH ×3 (05:23→21:00)
[2018-02-26] MEDS: VANCOMYCIN 0.75 GM in IV D5W 250 ML IV SCH ×2 (05:24→23:32)
[2018-02-26] MEDS: ENOXAPARIN SODIUM 40 MG/0.4 ML DISP.SYRIN SQ SCH (08:17)
[2018-02-26] MEDS: METOPROLOL TARTRATE 25 MG TABLET GT SCH ×2 (08:18→21:01)
[2018-02-26] MEDS: ASCORBIC ACID 500 MG TABLET PO SCH (08:18)
[2018-02-26] MEDS: MULTIVITAMINS,THERAGRAN 1 UDTAB TABLET PO SCH (08:18)
[2018-02-26] MEDS: AMIODARONE HCL 200 MG TABLET GT SCH ×2 (08:18→21:01)
[2018-02-26] MEDS: NYSTATIN CREAM 15 GM TUBE TP SCH ×2 (08:19→20:37)
[2018-02-26] MEDS: LACTOBACILLUS RHAMNOSUS GG 1 EACH CAP.SPRINK GT SCH ×2 (08:22→16:56)
[2018-02-26 08:48] LABS: ABG BASE EXCESS 3.8 mmol/L; ABG OXYGEN SATURATION 96.8 % (92.0-98.5); ABG PCO2 60.1 mmHg (35.0-45.0); ABG PH 7.325 (7.350-7.450); ABG PO2 103.7 mmHg (75.0-100.0); AaDO2 112.4 mmHg; COHb 0.6 % (0.5-1.5); MetHb 0.5 % (0.0-1.5); O2Hb 95.7 % (94.0-97.0); PEEP,BG 5 cm H2O; SITE, ABG Right Radial; VENT MODE, BG AC 12 550 40% +5; VT, ABG 550 mL
[2018-02-26] MEDS: JEVITY 1.2 CAL 1,000 ML BOTTLE GT PRN (15:25)
[2018-02-26] MEDS ORDERED: FUROSEMIDE 20 MG/2 ML VIAL IV ONE (19:30)
[2018-02-27] VITALS: BP_SYST 109; BP_SYST 134; BP_DIAS 54; BP_DIAS 67
[2018-02-27] MEDS: AZTREONAM 1 G in IV NS 0.9% 100 ML IV SCH ×3 (01:33→17:30)
[2018-02-27 04:00] VITALS: BP 128/65
[2018-02-27] MEDS ORDERED: IV NS 0.9% 250 ML IV ONE (04:00)
[2018-02-27] MEDS: IPRATROPIUM NEB FS 0.5 MG/2.5 ML AMPUL.NEB NEB SCH ×6 (04:31→23:43)
[2018-02-27] MEDS: methylPREDNISolone SOD SUCC 125 MG/2ML VIAL IV SCH ×3 (05:02→21:48)
[2018-02-27 06:11] LABS: BASOPHILS % (AUTO) 0.1 % (0.0-2.0); HEMATOCRIT 23 % (33-45); HEMOGLOBIN 7.3 g/dL (11.5-14.8); LYMPHOCYTES # (AUTO) 0.4 /CMM (0.8-4.8); LYMPHOCYTES % (AUTO) 7.7 % (20.0-44.0); MEAN CORPUSCULAR HGB CONC 31 g/dl (31.0-36.0); MEAN CORPUSCULAR VOLUME 93 fL (82-100); MONOCYTES # (AUTO) 0.1 /CMM (0.1-1.30); MONOCYTES % (AUTO) 2.7 % (2.0-12.0); NEUTROPHILS # (AUTO) 4.4 /CMM (1.8-8.9); NEUTROPHILS % (AUTO) 89.5 % (43.0-81.0); PLATELET COUNT (AUTO) 183 /CMM (150-450); RED BLOOD CELL COUNT(AUTO) 2.49 MIL/uL (4.0-5.2); WHITE BLOOD COUNT (AUTO) 4.9 K/uL (4.3-11.0)
[2018-02-27 06:33] LABS: CALCIUM, SERUM 8.2 mg/dL (8.5-10.1); CARBON DIOXIDE 32 mmol/L (21-32); CHLORIDE 105 mmol/L (98-107); CREATININE 1.1 mg/dL (0.6-1.3); GLUCOSE 162 mg/dL (74-106); PHOSPHORUS 3.7 mg/dL (2.5-4.9); POTASSIUM 3.9 mmol/L (3.5-5.1); SODIUM SERUM 140 mmol/L (136-145); UREA NITROGEN, BLOOD 58 mg/dL (7-18)
[2018-02-27 08:00] VITALS: BP 105/57
[2018-02-27] MEDS: MULTIVITAMINS,THERAGRAN 1 UDTAB TABLET PO SCH (08:28)
[2018-02-27] MEDS: NYSTATIN CREAM 15 GM TUBE TP SCH ×2 (08:28→21:49)
[2018-02-27] MEDS: ASCORBIC ACID 500 MG TABLET PO SCH (08:28)
[2018-02-27] MEDS: METOPROLOL TARTRATE 25 MG TABLET GT SCH ×2 (08:28→21:48)
[2018-02-27] MEDS: LACTOBACILLUS RHAMNOSUS GG 1 EACH CAP.SPRINK GT SCH ×2 (08:28→17:31)
[2018-02-27] MEDS: AMIODARONE HCL 200 MG TABLET GT SCH ×2 (08:29→21:48)
[2018-02-27] MEDS: ENOXAPARIN SODIUM 40 MG/0.4 ML DISP.SYRIN SQ SCH (08:33)
[2018-02-27 12:00] VITALS: BP 125/61
[2018-02-27] MEDS: JEVITY 1.2 CAL 1,000 ML BOTTLE GT PRN (12:46)
[2018-02-27 16:00] VITALS: BP 130/69
[2018-02-27] MEDS ORDERED: FUROSEMIDE 20 MG/2 ML VIAL IV ONE (17:00)
[2018-02-27 20:00] VITALS: BP 134/67
[2018-02-28] VITALS (8 sets, daily range): BP systolic 103–155; BP diastolic 41–76
[2018-02-28] MEDS: AZTREONAM 1 G in IV NS 0.9% 100 ML IV SCH ×2 (01:59→10:33)
[2018-02-28] MEDS: IPRATROPIUM NEB FS 0.5 MG/2.5 ML AMPUL.NEB NEB SCH ×6 (03:08→23:04)
[2018-02-28] MEDS: methylPREDNISolone SOD SUCC 125 MG/2ML VIAL IV SCH ×3 (04:33→20:23)
[2018-02-28] MEDS: JEVITY 1.2 CAL 1,000 ML BOTTLE GT PRN ×2 (04:33→23:52)
[2018-02-28 07:42] LABS: HEMATOCRIT 26 % (33-45); HEMOGLOBIN 8.1 g/dL (11.5-14.8); LYMPHOCYTES # (AUTO) 0.4 /CMM (0.8-4.8); LYMPHOCYTES % (AUTO) 5.7 % (20.0-44.0); MEAN CORPUSCULAR HGB CONC 32 g/dl (31.0-36.0); MEAN CORPUSCULAR VOLUME 93 fL (82-100); MONOCYTES # (AUTO) 0.2 /CMM (0.1-1.30); MONOCYTES % (AUTO) 2.1 % (2.0-12.0); NEUTROPHILS # (AUTO) 7.1 /CMM (1.8-8.9); NEUTROPHILS % (AUTO) 92.2 % (43.0-81.0); PLATELET COUNT (AUTO) 175 /CMM (150-450); RED BLOOD CELL COUNT(AUTO) 2.77 MIL/uL (4.0-5.2); WHITE BLOOD COUNT (AUTO) 7.8 K/uL (4.3-11.0)
[2018-02-28 08:00] LABS: CALCIUM, SERUM 8.6 mg/dL (8.5-10.1); CARBON DIOXIDE 32 mmol/L (21-32); CHLORIDE 106 mmol/L (98-107); CREATININE 1.1 mg/dL (0.6-1.3); GLUCOSE 162 mg/dL (74-106); MAGNESIUM 1.8 mg/dL (1.8-2.4); PHOSPHORUS 3.5 mg/dL (2.5-4.9); POTASSIUM 3.9 mmol/L (3.5-5.1); SODIUM SERUM 142 mmol/L (136-145); UREA NITROGEN, BLOOD 64 mg/dL (7-18)
[2018-02-28] MEDS: MULTIVITAMINS,THERAGRAN 1 UDTAB TABLET PO SCH (09:29)
[2018-02-28] MEDS: AMIODARONE HCL 200 MG TABLET GT SCH ×2 (09:31→20:19)
[2018-02-28] MEDS: METOPROLOL TARTRATE 25 MG TABLET GT SCH ×2 (09:31→20:20)
[2018-02-28] MEDS: ASCORBIC ACID 500 MG TABLET PO SCH (09:31)
[2018-02-28] MEDS: LACTOBACILLUS RHAMNOSUS GG 1 EACH CAP.SPRINK GT SCH ×2 (09:31→17:29)
[2018-02-28] MEDS: ENOXAPARIN SODIUM 40 MG/0.4 ML DISP.SYRIN SQ SCH (09:31)
[2018-02-28] MEDS: NYSTATIN CREAM 15 GM TUBE TP SCH ×2 (09:37→20:18)
[2018-02-28 09:56] LABS: ABG BASE EXCESS 5.7 mmol/L; ABG OXYGEN SATURATION 97.7 % (92.0-98.5); ABG PCO2 53.9 mmHg (35.0-45.0); ABG PH 7.388 (7.350-7.450); ABG PO2 112.1 mmHg (75.0-100.0); AaDO2 111.1 mmHg; COHb 0.4 % (0.5-1.5); MetHb 0.6 % (0.0-1.5); O2Hb 96.7 % (94.0-97.0); PEEP,BG 5 cm H2O; SITE, ABG Left Radial; VENT MODE, BG A/C; VT, ABG 550 mL
[2018-03-01] VITALS: BP 101/41
[2018-03-01] MEDS: IPRATROPIUM NEB FS 0.5 MG/2.5 ML AMPUL.NEB NEB SCH ×4 (03:06→16:02)
[2018-03-01 04:00] VITALS: BP 110/51
[2018-03-01] MEDS: methylPREDNISolone SOD SUCC 125 MG/2ML VIAL IV SCH ×2 (04:25→13:01)
[2018-03-01 07:11] LABS: BASOPHILS % (AUTO) 0.1 % (0.0-2.0); HEMATOCRIT 26 % (33-45); HEMOGLOBIN 7.9 g/dL (11.5-14.8); LYMPHOCYTES # (AUTO) 0.6 /CMM (0.8-4.8); LYMPHOCYTES % (AUTO) 8.6 % (20.0-44.0); MEAN CORPUSCULAR HGB CONC 31 g/dl (31.0-36.0); MEAN CORPUSCULAR VOLUME 93 fL (82-100); MONOCYTES # (AUTO) 0.2 /CMM (0.1-1.30); MONOCYTES % (AUTO) 2.3 % (2.0-12.0); PLATELET COUNT (AUTO) 147 /CMM (150-450); RED BLOOD CELL COUNT(AUTO) 2.73 MIL/uL (4.0-5.2); WHITE BLOOD COUNT (AUTO) 6.8 K/uL (4.3-11.0)
[2018-03-01 07:27] LABS: CALCIUM, SERUM 8.6 mg/dL (8.5-10.1); CARBON DIOXIDE 33 mmol/L (21-32); CHLORIDE 108 mmol/L (98-107); CREATININE 1.1 mg/dL (0.6-1.3); GLUCOSE 169 mg/dL (74-106); MAGNESIUM 1.9 mg/dL (1.8-2.4); PHOSPHORUS 3.3 mg/dL (2.5-4.9); POTASSIUM 4.3 mmol/L (3.5-5.1); SODIUM SERUM 144 mmol/L (136-145); UREA NITROGEN, BLOOD 70 mg/dL (7-18)
[2018-03-01 08:00] VITALS: BP_SYST 111; BP_SYST 113; BP_DIAS 38; BP_DIAS 42
[2018-03-01] MEDS: LACTOBACILLUS RHAMNOSUS GG 1 EACH CAP.SPRINK GT SCH (08:47)
[2018-03-01] MEDS: ASCORBIC ACID 500 MG TABLET PO SCH (08:47)
[2018-03-01] MEDS: MULTIVITAMINS,THERAGRAN 1 UDTAB TABLET PO SCH (08:47)
[2018-03-01] MEDS: METOPROLOL TARTRATE 25 MG TABLET GT SCH (08:48)
[2018-03-01] MEDS: ENOXAPARIN SODIUM 40 MG/0.4 ML DISP.SYRIN SQ SCH (08:51)
[2018-03-01] MEDS: AMIODARONE HCL 200 MG TABLET GT SCH (09:00)
[2018-03-01] MEDS: NYSTATIN CREAM 15 GM TUBE TP SCH (09:06)
[2018-03-01 12:00] VITALS: BP 116/45
[2018-03-01] MEDS ORDERED: PRED50TA PO (13:26)
[2018-03-01] MEDS ORDERED: METO25TA20 GT (13:26)
[2018-03-01] MEDS ORDERED: AMIO200T7 GT (13:26)
[2018-03-01] MEDS ORDERED: ASCO500T9 PO (13:26)
[2018-03-01] MEDS ORDERED: METH4TAB17 PO (13:26)
[2018-03-01 16:00] VITALS: BP 143/61
== END 2018-03-01 17:20 | DRG 130 ==
LOC: ER 09:08 → ICU 14:44 → TELE1 02-26 15:55 → TELE-TD 02-26 18:43 → TELE1 02-27 16:31
PROVIDERS: ADMIT Internal Medicine; ATTEND Internal Medicine
PROC: 5A1955Z Respiratory Ventilation, Greater than 96 Consecutive Hours (ICD-10-PCS; principal; 2018-02-23)
PROC: 02HV33Z Insertion of Infusion Device into Superior Vena Cava, Percutaneous Approach (ICD-10-PCS; 2018-02-24)
PROC: B548ZZA Ultrasonography of Superior Vena Cava, Guidance (ICD-10-PCS; 2018-02-24)
DX: J69.0 Pneumonitis due to inhalation of food and vomit (principal); N17.0 Acute kidney failure with tubular necrosis; E43 Unspecified severe protein-calorie malnutrition; I50.31 Acute diastolic (congestive) heart failure; L89.150 Pressure ulcer of sacral region, unstageable; G93.49 Other encephalopathy; J96.21 Acute and chronic respiratory failure with hypoxia; L89.300 Pressure ulcer of unspecified buttock, unstageable; D68.59 Other primary thrombophilia; R53.2 Functional quadriplegia; E87.5 Hyperkalemia; R13.10 Dysphagia, unspecified; D63.8 Anemia in other chronic diseases classified elsewhere; J96.22 Acute and chronic respiratory failure with hypercapnia; Z93.1 Gastrostomy status; G40.909 Epilepsy, unspecified, not intractable, without status epilepticus; I11.0 Hypertensive heart disease with heart failure; Z99.11 Dependence on respirator [ventilator] status; J44.1 Chronic obstructive pulmonary disease with (acute) exacerbation; J44.0 Chronic obstructive pulmonary disease with (acute) lower respiratory infection; E78.5 Hyperlipidemia, unspecified; F03.90 Unspecified dementia, unspecified severity, without behavioral disturbance, psychotic disturbance, mood disturbance, and anxiety; Z66 Do not resuscitate; Z51.5 Encounter for palliative care; Z87.440 Personal history of urinary (tract) infections; Z93.0 Tracheostomy status; M81.0 Age-related osteoporosis without current pathological fracture; N39.0 Urinary tract infection, site not specified; F20.9 Schizophrenia, unspecified; Z88.1 Allergy status to other antibiotic agents; Z79.899 Other long term (current) drug therapy; K21.9 Gastro-esophageal reflux disease without esophagitis; F09 Unspecified mental disorder due to known physiological condition; L30.4 Erythema intertrigo; S40.822A Blister (nonthermal) of left upper arm, initial encounter; S40.821A Blister (nonthermal) of right upper arm, initial encounter; X58.XXXA Exposure to other specified factors, initial encounter; Y92.129 Unspecified place in nursing home as the place of occurrence of the external cause; Z74.09 Other reduced mobility; L89.621 Pressure ulcer of left heel, stage 1; L89.611 Pressure ulcer of right heel, stage 1; B96.1 Klebsiella pneumoniae [K. pneumoniae] as the cause of diseases classified elsewhere; R78.81 Bacteremia; B96.89 Other specified bacterial agents as the cause of diseases classified elsewhere; S90.121A Contusion of right lesser toe(s) without damage to nail, initial encounter; Y92.9 Unspecified place or not applicable; Z86.14 Personal history of Methicillin resistant Staphylococcus aureus infection
CPT/HCPCS: 31720; 36415; 36600; 71045-TC; 80048-TC; 80076-TC; 80202-TC; 81000-TC; 82040-TC; 82803-TC; 83605-TC; 83735-TC; 83880; 84100-TC; 84443-TC; 84484-TC; 85025-TC; 85610-TC; 85730-TC; 87040-TC; 87081-TC; 87086-TC; 87186-TC; 93307-TC; 94002-TC; 94003-TC; 94760-TC; A4216; A4623; A6402; G0378; J0282; J1650; J1940; J2060; J2930; J3370; J3490; J7030; J7040; J7050; J7060; P9047; Q9967